=== PATIENT | female | born 1965 | race Caucasian/White ===

== ENCOUNTER 2017-03-31 20:42 | Emergency (ER) | payer MEDICAID, OTHER ==
[2017-03-31] MEDS ORDERED: Lidocaine 1% 20 ML MDV INJECT ONE (21:10)
--- NOTE | 2017-03-31 21:10 | EDM.PDOC ---
ED HPI GENERAL MEDICAL PROBLEM - General Chief Complaint: Skin Complaint Stated Complaint: FISH HOOK/RT MIDDLE FINGER Time Seen by Provider: 03/31/17 21:05 Source of Information: Reports: Patient History Limitations: Reports: No Limitations - History of Present Illness INITIAL COMMENTS - FREE TEXT/NARRATIVE: HISTORY AND PHYSICAL: History of present illness: [Patient comes to the emergency room with a fishhook stuck in her right middle finger. Occurred about 30 minutes ago when she was fishing. complains of pain to the tip of her middle finger. Cannot remember the date of her last tetanus shot. Otherwise has no other complaints or concerns. Review of systems: As per history of present illness and below otherwise all systems reviewed and negative. Past medical history: As per history of present illness and as reviewed below otherwise noncontributory. Surgical history: As per history of present illness and as reviewed below otherwise noncontributory. Social history: No reported history of drug or alcohol abuse. Family history: As per history of present illness and as reviewed below otherwise noncontributory. Physical exam: HEENT: Atraumatic, normocephalic. Extremities: Barbed fishhook in tip of right middle finger. Neurovascular unremarkable. Neuro: Awake, alert, oriented. Motor and sensory unremarkable throughout. Exam nonfocal. Impression: [Spearfish removal right middle finger] Plan: [Area was anesthetized with 1% lidocaine without epinephrine. The fishhook was removed from the embedded mohini using a coach wirer. The fishhook was then pulled through her finger without difficulty. It was intact. Bacitracin and dressing was applied by RN. Adacel was updated in the ER. Follow-up in the ER as needed as discussed. Patient is in agreement with today's plan.] Definitive disposition and diagnosis as appropriate pending reevaluation and review of above. left 3rd digit Pain Score (Numeric/FACES): 3 - Related Data Allergies Allergy/AdvReac Type Severity Reaction Status Date / Time No Known Allergies Allergy Verified 03/31/17 20:48 Home Meds: Home Meds metFORMIN [Glucophage XR] 500 mg PO DAILY 03/31/17 [History] Past Medical History HEENT History: Reports: None Psychiatric History: Reports: None Endocrine/Metabolic History: Reports: Diabetes, Type II Social & Family History - Family History Family Medical History: Noncontributory - Tobacco Use Smoking Status *Q: Never Smoker - Recreational Drug Use Recreational Drug Use: No ED ROS GENERAL - Review of Systems Review Of Systems: ROS reveals no pertinent complaints other than HPI. ED EXAM, SKIN/RASH Exam: See Below Course - Vital Signs Last Recorded V/S: Last Vital Signs Temp 97.0 F 03/31/17 20:49 Pulse 70 03/31/17 20:49 Resp 18 03/31/17 20:49 BP 167/87 H 03/31/17 20:49 Pulse Ox 95 03/31/17 20:49 - Orders/Labs/Meds Orders: Active Orders 24 hr Category Date Time Status Vaccines to be Administered [RC] PER UNIT ROUTINE Care 03/31/17 21:32 Ordered Bacitracin [Bacitracin Oint 1 GM] Med 03/31/17 21:31 Once 1 dose TOP ONETIME ONE Diphth,Pertuss(Acell),Tet Vac [Adacel] Med 03/31/17 21:32 Once 0.5 ml IM .ONCE ONE Meds: Medications Discontinued Medications Generic Name Dose Route Start Last Admin Trade Name Mansi PRN Reason Stop Dose Admin Lidocaine HCl 20 ml 03/31/17 21:10 Xylocaine 1% INJECT 03/31/17 21:11 ONETIME ONE Departure - Departure Time of Disposition: 21:34 Disposition: Home, Self-Care 01 Condition: Good Clinical Impression: Fish hook injury of finger of right hand - Discharge Information Referrals: PCP,None [Primary Care Provider] - Forms: ED Department Discharge Additional Instructions: The following information is given to patients seen in the emergency department who are being discharged to home. This information is to outline your options for follow-up care. We provide all patients seen in our emergency department with a follow-up referral. The need for follow-up, as well as the timing and circumstances, are variable depending upon the specifics of your emergency department visit. If you don't have a primary care physician on staff, we will provide you with a referral. We always advise you to contact your personal physician following an emergency department visit to inform them of the circumstance of the visit and for follow-up with them and/or the need for any referrals to a consulting specialist. The emergency department will also refer you to a specialist when appropriate. This referral assures that you have the opportunity for follow-up care with a specialist. All of these measure are taken in an effort to provide you with optimal care, which includes your follow-up. Under all circumstances we always encourage you to contact your private physician who remains a resource for coordinating your care. When calling for follow-up care, please make the office aware that this follow-up is from your recent emergency room visit. If for any reason you are refused follow-up, please contact the [facility] emergency department at and asked to speak to the emergency department charge nurse. [facility] [address] [place] [id number] Follow-up with your primary care provider in the next 48-72 hours. Keep clean and dry. Apply Neosporin and Band-Aid as instructed. Return to ER as needed as discussed. - My Orders Last 24 Hours: My Active Orders 03/31/17 21:31 Bacitracin [Bacitracin Oint 1 GM] 1 dose TOP ONETIME ONE 03/31/17 21:32 Vaccines to be Administered [RC] PER UNIT ROUTINE Diphth,Pertuss(Acell),Tet Vac [Adacel] 0.5 ml IM .ONCE ONE - Assessment/Plan Last 24 Hours: My Active Orders 03/31/17 21:31 Bacitracin [Bacitracin Oint 1 GM] 1 dose TOP ONETIME ONE 03/31/17 21:32 Vaccines to be Administered [RC] PER UNIT ROUTINE Diphth,Pertuss(Acell),Tet Vac [Adacel] 0.5 ml IM .ONCE ONE
[2017-03-31] MEDS ORDERED: Bacitracin Oint 1 GM U/D Packet TOP ONE (21:31)
[2017-03-31] MEDS ORDERED: Diphtheria,Pertussis(Acell),Tetanus Vaccine 0.5 ML Syringe IM ONE (21:32)
[2017-04-01 06:04] VITALS: BP 151/85
== END 2017-03-31 21:50 | disposition home or self-care (01) ==
LOC: MW.ED 20:42
DX: S60.452A Superficial foreign body of right middle finger, initial encounter (principal); Z23 Encounter for immunization; E11.9 Type 2 diabetes mellitus without complications; W45.8XXA Other foreign body or object entering through skin, initial encounter
CPT/HCPCS: 90471; 90715; 99283-25; 99284

== ENCOUNTER 2017-05-25 17:44 | Emergency (ER) | payer MEDICAID, OTHER ==
[2017-05-25] MEDS ORDERED: Sodium Chloride 0.9% 1,000 ML IV ONE (18:12)
[2017-05-25] MEDS ORDERED: Ketorolac 30 MG/ML SDV IVPUSH ONE (18:12)
[2017-05-25] MEDS ORDERED: Ondansetron 4 MG/2 ML SDV IVPUSH ONE (18:12)
[2017-05-25] MEDS ORDERED: LORazepam 2 MG/ML MDV IVPUSH ONE (18:13)
[2017-05-25 19:18] LABS: CHLORIDE,CL 108 mmol/L (98-110); SODIUM,NA 142 mmol/L (136-146)
--- NOTE | 2017-05-25 19:59 | EDM.PDOC ---
ED HPI GENERAL MEDICAL PROBLEM - General Chief Complaint: Headache Stated Complaint: PT HEAD IS HURTING Time Seen by Provider: 05/25/17 17:56 Source of Information: Reports: Patient History Limitations: Reports: No Limitations - History of Present Illness INITIAL COMMENTS - FREE TEXT/NARRATIVE: History of present illness: [52-year-old female comes in complaining of debilitating headache indicated the worst headache of her life. Patient also shares that she has had a family member with recent diagnosis of a brain tumor as well as a family member cervical aneurysm and she is very frightened.] Review of systems: As per history of present illness and below otherwise all systems reviewed and negative. Past medical history: As per history of present illness and as reviewed below otherwise noncontributory. Surgical history: As per history of present illness and as reviewed below otherwise noncontributory. Social history: No reported history of drug or alcohol abuse. Family history: As per history of present illness and as reviewed below otherwise noncontributory. Physical exam: HEENT: Atraumatic, normocephalic, pupils reactive, negative for conjunctival pallor or scleral icterus, mucous membranes moist, throat clear, neck supple, nontender, trachea midline. Lungs: Clear to auscultation, breath sounds equal bilaterally, chest nontender. Heart: S1S2, regular, negative for clicks, rubs, or JVD. Abdomen: Soft, nondistended, nontender. Negative for masses or hepatosplenomegaly. Negative for costovertebral tenderness. Pelvis: Stable nontender. Genitourinary: Deferred. Rectal: Deferred. Extremities: Atraumatic, negative for cords or calf pain. Neurovascular unremarkable. Neuro: Awake, alert, oriented. Cranial nerves II through XII unremarkable. Cerebellum unremarkable. Motor and sensory unremarkable throughout. Exam nonfocal. Global assessment is benign save the subjective complaint of the headache as noted in the history of present illness. Diagnostics: [CT of head without contrast, CBC, CMP] Therapeutics: [IV fluid, Ativan,] Impression: [#1 headache #2 anxiety ] Plan: [f/u with PCP] Definitive disposition and diagnosis as appropriate pending reevaluation and review of above. head Pain Score (Numeric/FACES): 8 - Related Data Allergies Allergy/AdvReac Type Severity Reaction Status Date / Time No Known Allergies Allergy Verified 05/25/17 17:51 Home Meds: Home Meds metFORMIN [Glucophage XR] 500 mg PO DAILY 03/31/17 [History] Past Medical History - Past Health History Medical/Surgical History: Denies Medical/Surgical History HEENT History: Reports: None Cardiovascular History: Reports: Stents Psychiatric History: Reports: None Endocrine/Metabolic History: Reports: Diabetes, Type II Social & Family History - Family History Family Medical History: Noncontributory - Tobacco Use Smoking Status *Q: Never Smoker - Recreational Drug Use Recreational Drug Use: No ED ROS GENERAL - Review of Systems Review Of Systems: See Below (The history of present illness) ED EXAM, GENERAL - Physical Exam Exam: See Below (History of present illness) Course - Vital Signs Last Recorded V/S: Last Vital Signs Temp 36.4 C 05/25/17 17:44 Pulse 90 05/25/17 17:44 Resp 18 05/25/17 17:44 BP 146/78 H 05/25/17 17:44 Pulse Ox 97 05/25/17 17:44 - Orders/Labs/Meds Orders: Active Orders 24 hr Category Date Time Status Head wo Cont [CT] Stat Exams 05/25/17 18:13 Taken Labs: Laboratory Tests 05/25/17 05/25/17 Range/Units 18:42 18:42 WBC 8.88 (4.0-11.0) K/uL RBC 3.55 L (4.30-5.90) M/uL Hgb 10.2 L (12.0-16.0) g/dL Hct 31.5 L (36.0-46.0) % MCV 88.7 (80.0-98.0) fL MCH 28.7 (27.0-32.0) pg MCHC 32.4 (31.0-37.0) g/dL RDW Std Deviation 44.2 (28.0-62.0) fl RDW Coeff of Danny 14 (11.0-15.0) % Plt Count 316 (150-400) K/uL MPV 11.20 (7.40-12.00) fL Neut % (Auto) 66.5 (48.0-80.0) % Lymph % (Auto) 25.2 (16.0-40.0) % [place] % (Auto) 6.5 (0.0-15.0) % Eos % (Auto) 1.5 (0.0-7.0) % Baso % (Auto) 0.3 (0.0-1.5) % Neut # (Auto) 5.9 H (1.4-5.7) K/uL Lymph # (Auto) 2.2 (0.6-2.4) K/uL [place] # (Auto) 0.6 (0.0-0.8) K/uL Eos # (Auto) 0.1 (0.0-0.7) K/uL Baso # (Auto) 0.0 (0.0-0.1) K/uL Nucleated RBC % 0.0 /100WBC Nucleated RBCs # 0 K/uL Sodium 142 (136-146) mmol/L Potassium 3.9 (3.5-5.1) mmol/L Chloride 108 (98-110) mmol/L Carbon Dioxide 25 (21-31) mmol/L BUN 11 (6.0-23.0) mg/dL Creatinine 0.6 (0.6-1.5) mg/dL Est Cr Clr Drug Dosing TNP Estimated GFR (MDRD) > 60.0 ml/min Glucose 113 H (60-110) mg/dL Calcium 8.8 (8.8-10.8) mg/dL Total Bilirubin 0.3 (0.1-1.5) mg/dL AST 22 (5-40) IU/L ALT 23 (8-54) IU/L Alkaline Phosphatase 80 (40-150) Total Protein 6.7 (6.0-8.0) g/dL Albumin 3.6 (3.5-5.0) g/dL Globulin 3.1 (2.0-3.5) g/dL Albumin/Globulin Ratio 1.2 L (1.3-2.8) Meds: Medications Discontinued Medications Generic Name Dose Route Start Last Admin Trade Name Freq PRN Reason Stop Dose Admin Sodium Chloride 1,000 mls @ 999 mls/hr 05/25/17 18:12 05/25/17 19:18 Normal Saline IV 05/25/17 19:12 999 mls/hr STAT ONE Administration Ketorolac Tromethamine 30 mg 05/25/17 18:12 05/25/17 18:50 Toradol IVPUSH 05/25/17 18:13 30 mg ONETIME ONE Administration Lorazepam 1 mg 05/25/17 18:13 05/25/17 19:12 Ativan IVPUSH 05/25/17 18:14 1 mg ONETIME ONE Administration Ondansetron HCl 4 mg 05/25/17 18:12 05/25/17 19:10 Zofran IVPUSH 05/25/17 18:13 4 mg ONETIME ONE Administration Departure - Departure Time of Disposition: 19:58 Disposition: Home, Self-Care 01 Condition: Good Clinical Impression: Tension-type headache, Anxiety - Discharge Information Referrals: PCP,None [Primary Care Provider] - Additional Instructions: The following information is given to patients seen in the emergency department who are being discharged to home. This information is to outline your options for follow-up care. We provide all patients seen in our emergency department with a follow-up referral. The need for follow-up, as well as the timing and circumstances, are variable depending upon the specifics of your emergency department visit. If you don't have a primary care physician on staff, we will provide you with a referral. We always advise you to contact your personal physician following an emergency department visit to inform them of the circumstance of the visit and for follow-up with them and/or the need for any referrals to a consulting specialist. The emergency department will also refer you to a specialist when appropriate. This referral assures that you have the opportunity for follow-up care with a specialist. All of these measure are taken in an effort to provide you with optimal care, which includes your follow-up. Under all circumstances we always encourage you to contact your private physician who remains a resource for coordinating your care. When calling for follow-up care, please make the office aware that this follow-up is from your recent emergency room visit. If for any reason you are refused follow-up, please contact the [facility] Emergency Department at and asked to speak to the emergency department charge nurse. You may take [id number] pain medicine for your headache You may alternate ice and heat on your neck and on your temples to help with your headache Follow-up the primary care provider as needed Return to ED as needed as discussed - My Orders Last 24 Hours: My Active Orders 05/25/17 18:13 Head wo Cont [CT] Stat - Assessment/Plan Last 24 Hours: My Active Orders 05/25/17 18:13 Head wo Cont [CT] Stat
[2017-05-25 20:24] VITALS: BP 141/78
--- NOTE | 2017-05-26 19:56 | CT ---
EXAM DATE: 05/25/17 PATIENT'S AGE: 52 Patient: CATARINA KNOTT Facility: [place], [place] Site . Site : 1965 Study: CT Head WO CONT [id number]/21/2017 7:09:55 PM Ordering Physician: Doctor Westbrook Final Report: INDICATION: PAIN TO OCCIPITAL AREA FOR 5 DAYS WITH NO KNOWN INJURY TECHNIQUE: CT Head without contrast. COMPARISON: None. FINDINGS: CSF spaces: Within normal limits for age. Brain parenchyma: The gayle-white differentiation is normal. No sign of mass, hemorrhage, or midline shift. Skull base and calvarium: The visualized paranasal sinuses and mastoid air cells are clear. The visualized orbits are grossly unremarkable. No skull fractures. IMPRESSION: Unremarkable noncontrast head CT. Dictated by: Pietro Haley MD @ 05/25/2017 19:50:49 (Electronic Signature) Report Signed by Proxy. [facility]
== END 2017-05-25 20:21 | disposition home or self-care (01) ==
LOC: MW.ED 17:44
DX: G44.209 Tension-type headache, unspecified, not intractable (principal); F41.9 Anxiety disorder, unspecified; E11.9 Type 2 diabetes mellitus without complications; Z79.84 Long term (current) use of oral hypoglycemic drugs
CPT/HCPCS: 36415; 70450; 80053; 85025; 96361; 96374; 96375; 99284; J1885; J2060; J2405; J7040; 99282

== ENCOUNTER 2017-07-22 23:29 | Observation (INO) | payer MEDICAID, OTHER ==
[2017-07-22] MEDS ORDERED: Sodium Chloride 0.9% 10 ML Syringe FLUSH PRN (23:38)
[2017-07-22] MEDS ORDERED: Sodium Chloride 0.9% 2.5 ML Syringe FLUSH PRN ×2 (23:38)
--- NOTE | 2017-07-22 23:40 | EDM.PDOC ---
ED HPI GENERAL MEDICAL PROBLEM - General Chief Complaint: Chest Pain Stated Complaint: CEHST PAIN Time Seen by Provider: 07/22/17 23:38 - History of Present Illness INITIAL COMMENTS - FREE TEXT/NARRATIVE: HISTORY AND PHYSICAL: History of present illness: Patient 52-year-old female with history of coronary artery disease who had a stent in 2016 was also had bariatric surgery and a history of non-insulin dependent diabetes presents with concern of chest pain this started several hours prior to arrival is poorly described mid chest she equivocates regarding radiation to her left shoulder she had no associated shortness of breath diaphoresis nausea vomiting or other complaints. She does have a history of anxiety Review of systems: As per history of present illness and below otherwise all systems reviewed and negative. Past medical history: As per history of present illness and as reviewed below otherwise noncontributory. Surgical history: As per history of present illness and as reviewed below otherwise noncontributory. Social history: No reported history of drug or alcohol abuse. Family history: As per history of present illness and as reviewed below otherwise noncontributory. Physical exam: HEENT: Atraumatic, normocephalic, pupils reactive, negative for conjunctival pallor or scleral icterus, mucous membranes moist, throat clear, neck supple, nontender, trachea midline. Lungs: Clear to auscultation, breath sounds equal bilaterally, chest nontender. Heart: S1S2, regular, negative for clicks, rubs, or JVD. Abdomen: Soft, nondistended, nontender. Negative for masses or hepatosplenomegaly. Negative for costovertebral tenderness. Pelvis: Stable nontender. Genitourinary: Deferred. Rectal: Deferred. Extremities: Atraumatic, negative for cords or calf pain. Neurovascular unremarkable. Neuro: Awake, alert, oriented. Cranial nerves II through XII unremarkable. Cerebellum unremarkable. Motor and sensory unremarkable throughout. Exam nonfocal. Diagnostics: CBC CMP PT/INR troponin chest x-ray EKG Therapeutics: IV O2 monitor aspirin 324 mg by mouth sublingual nitroglycerin every 53 Impression: #1 chest pain #2 history diabetes Definitive disposition and diagnosis as appropriate pending reevaluation and review of above. Left Upper Chest Pain Score (Numeric/FACES): 7 - Related Data Allergies Allergy/AdvReac Type Severity Reaction Status Date / Time No Known Allergies Allergy Verified 07/22/17 23:42 Home Meds: Home Meds metFORMIN [Glucophage XR] 1,000 mg PO BID 03/31/17 [History] Furosemide [Lasix] 0 mg PO DAILY 07/22/17 [History] Hydrochlorothiazide 0 mg PO BEDTIME 07/22/17 [History] glipiZIDE [Glucotrol XL] 2.5 mg PO BID 07/22/17 [History] Past Medical History - Past Health History Medical/Surgical History: Denies Medical/Surgical History HEENT History: Reports: None Cardiovascular History: Reports: Stents Psychiatric History: Reports: None Endocrine/Metabolic History: Reports: Diabetes, Type II Social & Family History - Family History Family Medical History: Noncontributory - Tobacco Use Smoking Status *Q: Never Smoker - Recreational Drug Use Recreational Drug Use: No ED ROS GENERAL - Review of Systems Review Of Systems: ROS reveals no pertinent complaints other than HPI. ED EXAM, GENERAL - Physical Exam Exam: See Below (See dictated) Course - Vital Signs Last Recorded V/S: Last Vital Signs Temp 36.6 C 07/22/17 23:44 Pulse 78 07/23/17 00:09 Resp 16 07/22/17 23:44 BP 122/69 07/23/17 00:09 Pulse Ox 96 07/22/17 23:44 - Orders/Labs/Meds Orders: Active Orders 24 hr Category Date Time Status EKG Documentation Completion [RC] STAT Care 07/22/17 23:38 Active Chest 1V Frontal [CR] Stat Exams 07/22/17 23:38 Taken Nitroglycerin [Nitrostat] Med 07/22/17 23:41 Active 0.4 mg SL Q5M PRN Sodium Chloride 0.9% [Saline Flush] Med 07/22/17 23:38 Active 10 ml FLUSH ASDIRECTED PRN Sodium Chloride 0.9% [Saline Flush] Med 07/22/17 23:38 Active 2.5 ml FLUSH ASDIRECTED PRN Saline Lock Insert [OM.PC] Stat Oth 07/22/17 23:38 Ordered Medication Orders Nitroglycerin (Nitrostat) 0.4 mg SL Q5M PRN PRN Reason: Chest Pain Last Admin: 07/23/17 00:04 Dose: 0.4 mg Sodium Chloride (Saline Flush) 10 ml FLUSH ASDIRECTED PRN PRN Reason: Keep Vein Open Last Admin: 07/23/17 00:05 Dose: 10 ml Sodium Chloride (Saline Flush) 2.5 ml FLUSH ASDIRECTED PRN PRN Reason: Keep Vein Open Last Admin: 07/23/17 00:04 Dose: 2.5 ml Labs: Laboratory Tests 07/22/17 07/22/17 07/22/17 Range/Units 23:47 23:47 23:47 WBC 7.68 (4.0-11.0) K/uL RBC 3.81 L (4.30-5.90) M/uL Hgb 9.6 L (12.0-16.0) g/dL Hct 31.6 L (36.0-46.0) % MCV 82.9 (80.0-98.0) fL MCH 25.2 L (27.0-32.0) pg MCHC 30.4 L (31.0-37.0) g/dL RDW Std Deviation 53.2 (28.0-62.0) fl RDW Coeff of Danny 18 H (11.0-15.0) % Plt Count 278 (150-400) K/uL MPV 11.20 (7.40-12.00) fL Neut % (Auto) 64.9 (48.0-80.0) % Lymph % (Auto) 24.7 (16.0-40.0) % [place] % (Auto) 7.0 (0.0-15.0) % Eos % (Auto) 2.9 (0.0-7.0) % Baso % (Auto) 0.5 (0.0-1.5) % Neut # (Auto) 5.0 (1.4-5.7) K/uL Lymph # (Auto) 1.9 (0.6-2.4) K/uL [place] # (Auto) 0.5 (0.0-0.8) K/uL Eos # (Auto) 0.2 (0.0-0.7) K/uL Baso # (Auto) 0.0 (0.0-0.1) K/uL Nucleated RBC % 0.0 /100WBC Nucleated RBCs # 0 K/uL INR 0.94 (0.86-1.11) D-Dimer, Quantitative 0.33 (0.0-0.52) mg/LFEU Sodium 140 (136-146) mmol/L Potassium 3.6 (3.5-5.1) mmol/L Chloride 105 (98-110) mmol/L Carbon Dioxide 25 (21-31) mmol/L BUN 13 (6.0-23.0) mg/dL Creatinine 0.7 (0.6-1.5) mg/dL Est Cr Clr Drug Dosing 89.01 mL/min Estimated GFR (MDRD) > 60.0 ml/min Glucose 201 H (60-110) mg/dL Calcium 8.7 L (8.8-10.8) mg/dL Total Bilirubin 0.5 (0.1-1.5) mg/dL AST 21 (5-40) IU/L ALT 22 (8-54) IU/L Alkaline Phosphatase 110 (40-150) CK-MB (CK-2) 0.5 (0-6.6) ng/ml Troponin I < 0.10 (0.0-0.29) NG/ML Total Protein 6.8 (6.0-8.0) g/dL Albumin 3.5 (3.5-5.0) g/dL Globulin 3.3 (2.0-3.5) g/dL Albumin/Globulin Ratio 1.1 L (1.3-2.8) Meds: Medications Generic Name Dose Route Start Last Admin Trade Name Freq PRN Reason Stop Dose Admin Nitroglycerin 0.4 mg 07/22/17 23:41 07/23/17 00:04 Nitrostat SL 0.4 mg Q5M PRN Administration Chest Pain Sodium Chloride 10 ml 07/22/17 23:38 07/23/17 00:05 Saline Flush FLUSH 10 ml ASDIRECTED PRN Administration Keep Vein Open Sodium Chloride 2.5 ml 07/22/17 23:38 07/23/17 00:04 Saline Flush FLUSH 2.5 ml ASDIRECTED PRN Administration Keep Vein Open Discontinued Medications Generic Name Dose Route Start Last Admin Trade Name Freq PRN Reason Stop Dose Admin Aspirin 324 mg 07/22/17 23:41 07/23/17 00:00 Aspirin PO 07/22/17 23:42 324 mg ONETIME ONE Administration Sodium Chloride 2.5 ml 07/22/17 23:38 Saline Flush FLUSH ASDIRECTED PRN Keep Vein Open Departure - Departure Time of Disposition: 23:39 Disposition: Refer to Observation Condition: Good Clinical Impression: Chest pain, Non-insulin dependent type 2 diabetes mellitus - Discharge Information Referrals: PCP,None [Primary Care Provider] - Forms: ED Department Discharge - My Orders Last 24 Hours: My Active Orders 07/22/17 23:38 EKG Documentation Completion [RC] STAT Chest 1V Frontal [CR] Stat Sodium Chloride 0.9% [Saline Flush] 10 ml FLUSH ASDIRECTED PRN Sodium Chloride 0.9% [Saline Flush] 2.5 ml FLUSH ASDIRECTED PRN Saline Lock Insert [OM.PC] Stat 07/22/17 23:41 Nitroglycerin [Nitrostat] 0.4 mg SL Q5M PRN - Assessment/Plan Last 24 Hours: My Active Orders 07/22/17 23:38 EKG Documentation Completion [RC] STAT Chest 1V Frontal [CR] Stat Sodium Chloride 0.9% [Saline Flush] 10 ml FLUSH ASDIRECTED PRN Sodium Chloride 0.9% [Saline Flush] 2.5 ml FLUSH ASDIRECTED PRN Saline Lock Insert [OM.PC] Stat 07/22/17 23:41 Nitroglycerin [Nitrostat] 0.4 mg SL Q5M PRN
[2017-07-22] MEDS ORDERED: Nitroglycerin 0.4 MG Tab.SL SL PRN (23:41)
[2017-07-22] MEDS ORDERED: Aspirin 81 MG Tab.Chew PO ONE (23:41)
[2017-07-23 00:24] LABS: CHLORIDE,CL 105 mmol/L (98-110); SODIUM,NA 140 mmol/L (136-146)
[2017-07-23] MEDS ORDERED: Insulin Aspart 100 Units/ML 3 ML Pen SUBCUT SCH (07:30)
[2017-07-23 13:16] VITALS: BP 128/73
--- NOTE | 2017-07-23 15:49 | CR ---
EXAM DATE: 07/23/17 PATIENT'S AGE: 52 Patient: CATARINA KNOTT Facility: [place], [place] Site . Site : 1965 Study: XRay Chest [id number]/19/2017 12:14:00 AM Ordering Physician: Aspen Quiroz Final Report: INDICATION: CHEST PAIN TECHNIQUE: Chest 1 view COMPARISON: None FINDINGS: Cardiovascular and mediastinum: Heart size and vasculature are normal in caliber and appearance. Mediastinum is within normal limits. Lungs and pleural space: No focal consolidation. No sign of pleural effusion. No pneumothorax. Bones and soft tissues: Degenerative changes. IMPRESSION: No acute cardiopulmonary disease. Dictated by Wicho Hannah MD @ 07/23/2017 12:25:48 AM Dictated by: Wicho Hannah MD @ 07/23/2017 00:25:57 (Electronic Signature) Report Signed by Proxy. [facility]
== END 2017-07-23 13:15 ==
LOC: MW.ED 23:29 → MW.MS 07-23 00:31
PROVIDERS: ADMIT Internal Medicine; ATTEND Internal Medicine
DX: R07.89 Other chest pain (principal); I25.10 Atherosclerotic heart disease of native coronary artery without angina pectoris; I10 Essential (primary) hypertension; E11.9 Type 2 diabetes mellitus without complications; Z98.84 Bariatric surgery status; Z79.84 Long term (current) use of oral hypoglycemic drugs; Z79.899 Other long term (current) drug therapy; Z95.5 Presence of coronary angioplasty implant and graft
CPT/HCPCS: 36415; 71010; 80053; 82553; 82962; 84484; 85025; 85379; 85610; 99285; A9270; J1815; 99283; G0378

== ENCOUNTER 2019-05-28 09:12 | Emergency (ER) | payer BC, OTHER ==
[2019-05-28] MEDS ORDERED: Sodium Chloride 0.9% 10 ML Syringe FLUSH PRN (09:22)
[2019-05-28] MEDS ORDERED: Sodium Chloride 0.9% 2.5 ML Syringe FLUSH PRN (09:22)
[2019-05-28] MEDS ORDERED: Aspirin 81 MG Tab.Chew PO ONE (09:22)
[2019-05-28] MEDS ORDERED: Nitroglycerin 2% Oint 1 GM UD Packet TOP ONE (09:22)
--- NOTE | 2019-05-28 09:25 | EDM.PDOC ---
ED HPI GENERAL MEDICAL PROBLEM - General Chief Complaint: Chest Pain Stated Complaint: SOB Time Seen by Provider: 05/28/19 09:19 - History of Present Illness INITIAL COMMENTS - FREE TEXT/NARRATIVE: HISTORY AND PHYSICAL: History of present illness: Patient's 54-year-old white female history of diabetes who has had coronary artery stent placed in 2013 after positive stress test who presents with a concern of chest pain has been midsternal off-and-on since this morning she noticed it while at work there was some associated shortness of breath no nausea vomiting or diaphoresis. On arrival here patient states the pain has resolved Review of systems: As per history of present illness and below otherwise all systems reviewed and negative. Past medical history: As per history of present illness and as reviewed below otherwise noncontributory. Surgical history: As per history of present illness and as reviewed below otherwise noncontributory. Social history: No reported history of drug or alcohol abuse. Family history: As per history of present illness and as reviewed below otherwise noncontributory. Physical exam: HEENT: Atraumatic, normocephalic, pupils reactive, negative for conjunctival pallor or scleral icterus, mucous membranes moist, throat clear, neck supple, nontender, trachea midline. Lungs: Clear to auscultation, breath sounds equal bilaterally, chest nontender. Heart: S1S2, regular, negative for clicks, rubs, or JVD. Abdomen: Soft, nondistended, nontender. Negative for masses or hepatosplenomegaly. Negative for costovertebral tenderness. Pelvis: Stable nontender. Genitourinary: Deferred. Rectal: Deferred. Extremities: Atraumatic, negative for cords or calf pain. Neurovascular unremarkable. Neuro: Awake, alert, oriented. Cranial nerves II through XII unremarkable. Cerebellum unremarkable. Motor and sensory unremarkable throughout. Exam nonfocal. Diagnostics: CBC CMP and BNP troponin PT/INR chest x-ray EKG Therapeutics: IV O2 monitor aspirin 324 mg by mouth Nitropaste 1 inch to chest wall Impression: #1 chest pain #2 history diabetes #3 history coronary artery stent Definitive disposition and diagnosis as appropriate pending reevaluation and review of above. chest Pain Score (Numeric/FACES): 8 - Related Data Allergies Allergy/AdvReac Type Severity Reaction Status Date / Time No Known Allergies Allergy Verified 05/28/19 09:18 Home Meds: Home Meds metFORMIN [Glucophage XR] 1,000 mg PO BID 03/31/17 [History] Furosemide [Lasix] 1 tab PO DAILY 07/22/17 [History] Diclofenac Sodium [Diclofono] 1 dose TOP ASDIRECTED 05/28/19 [History] Fluticasone Propionate [Flovent] 50 mcg NASBOTH BID 05/28/19 [History] Insulin Detemir [Levemir Flextouch] 40 unit INJECT DAILY 05/28/19 [History] Isosorbide Mononitrate [Ismo] 30 mg PO DAILY 05/28/19 [History] Losartan [Cozaar] 50 mg PO DAILY 05/28/19 [History] Metoprolol Succinate [Kapspargo Sprinkle] 25 mg PO DAILY 05/28/19 [History] Pantoprazole Sodium [Protonix] 40 mg PO DAILY 05/28/19 [History] metOLazone [Metolazone] 2.5 mg PO DAILY 05/28/19 [History] traMADol HCl [Tramadol HCl] 50 mg PO Q6HR 05/28/19 [History] Past Medical History - Past Health History Medical/Surgical History: Denies Medical/Surgical History HEENT History: Reports: None Cardiovascular History: Reports: Stents Respiratory History: Reports: None Gastrointestinal History: Reports: None Genitourinary History: Reports: None 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: Reports: 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 Musculoskeletal History: Reports: None Neurological History: Reports: None Psychiatric History: Reports: None Endocrine/Metabolic History: Reports: Diabetes, Type II Hematologic History: Reports: None Immunologic History: Reports: None Oncologic (Cancer) History: Reports: None Dermatologic History: Reports: None - Infectious Disease History Infectious Disease History: Reports: Chicken Pox - Past Surgical History Head Surgeries/Procedures: Reports: None HEENT Surgical History: Reports: None Cardiovascular Surgical History: Reports: Coronary Artery Stent Respiratory Surgical History: Reports: None GI Surgical History: Reports: Cholecystectomy Female Surgical History: Reports: Oophorectomy Endocrine Surgical History: Reports: None Neurological Surgical History: Reports: None Musculoskeletal Surgical History: Reports: None Oncologic Surgical History: Reports: None Dermatological Surgical History: Reports: None Social & Family History - Family History Family Medical History: Noncontributory - Tobacco Use Smoking Status *Q: Former Smoker Used Tobacco, but Quit: Yes Month/Year Tobacco Last Used: 30 years - Caffeine Use Caffeine Use: Reports: Coffee Caffeine Use Comment: 4 cups daily - Recreational Drug Use Recreational Drug Use: No ED ROS GENERAL - Review of Systems Review Of Systems: ROS reveals no pertinent complaints other than HPI. ED EXAM, GENERAL - Physical Exam Exam: See Below (Dictation) Course - Vital Signs Last Recorded V/S: Last Vital Signs Temp 36.4 C 05/28/19 09:16 Pulse 71 05/28/19 09:42 Resp 18 05/28/19 09:41 BP 133/79 05/28/19 10:14 Pulse Ox 93 L 05/28/19 09:41 - Orders/Labs/Meds Orders: Active Orders 24 hr Category Date Time Status Cardiac Monitoring [RC] . DIRECTED Care 05/28/19 09:21 Active EKG Documentation Completion [RC] STAT Care 05/28/19 09:21 Active Oxygen Therapy, ED [RC] ASDIRECTED Care 05/28/19 09:21 Active Pulse Oximetry [RC] ASDIRECTED Care 05/28/19 09:21 Active Sodium Chloride 0.9% [Normal Saline] 1,000 ml Med 05/28/19 09:30 Active IV STAT Sodium Chloride 0.9% [Saline Flush] Med 05/28/19 09:22 Active 10 ml FLUSH ASDIRECTED PRN Sodium Chloride 0.9% [Saline Flush] Med 05/28/19 09:22 Active 2.5 ml FLUSH ASDIRECTED PRN Saline Lock Insert [OM.PC] Stat Oth 05/28/19 09:21 Ordered Medication Orders Sodium Chloride (Normal Saline) 1,000 mls @ 125 mls/hr IV STAT BLADE Last Admin: 05/28/19 09:37 Dose: 125 mls/hr Sodium Chloride (Saline Flush) 10 ml FLUSH ASDIRECTED PRN PRN Reason: Keep Vein Open Sodium Chloride (Saline Flush) 2.5 ml FLUSH ASDIRECTED PRN PRN Reason: Keep Vein Open Labs: Laboratory Tests 05/28/19 05/28/19 05/28/19 Range/Units 09:22 09:22 09:22 WBC 8.67 (4.0-11.0) K/uL RBC 4.14 L (4.30-5.90) M/uL Hgb 11.5 L (12.0-16.0) g/dL Hct 35.6 L (36.0-46.0) % MCV 86.0 (80.0-98.0) fL MCH 27.8 (27.0-32.0) pg MCHC 32.3 (31.0-37.0) g/dL RDW Std Deviation 47.6 (28.0-62.0) fl RDW Coeff of Danny 15 (11.0-15.0) % Plt Count 288 (150-400) K/uL MPV 12.20 H (7.40-12.00) fL Neut % (Auto) 66.2 (48.0-80.0) % Lymph % (Auto) 25.4 (16.0-40.0) % [place] % (Auto) 5.8 (0.0-15.0) % Eos % (Auto) 2.3 (0.0-7.0) % Baso % (Auto) 0.3 (0.0-1.5) % Neut # (Auto) 5.7 (1.4-5.7) K/uL Lymph # (Auto) 2.2 (0.6-2.4) K/uL [place] # (Auto) 0.5 (0.0-0.8) K/uL Eos # (Auto) 0.2 (0.0-0.7) K/uL Baso # (Auto) 0.0 (0.0-0.1) K/uL Nucleated RBC % 0.0 /100WBC Nucleated RBCs # 0 K/uL INR 0.92 Sodium 137 (136-145) mmol/L Potassium 3.3 L (3.5-5.1) mmol/L Chloride 99 (98-107) mmol/L Carbon Dioxide 29.7 (21.0-32.0) mmol/L BUN 16 (7.0-18.0) mg/dL Creatinine 0.6 (0.6-1.0) mg/dL Est Cr Clr Drug Dosing 101.51 mL/min Estimated GFR (MDRD) > 60.0 ml/min Glucose 311 H (74-106) mg/dL Calcium 8.6 (8.5-10.1) mg/dL Total Bilirubin 0.5 (0.2-1.0) mg/dL AST 24 (15-37) IU/L ALT 32 (14-63) IU/L Alkaline Phosphatase 110 (46-116) U/L Troponin I < 0.050 (0.000-0.056) ng/mL B-Natriuretic Peptide (<100) PG/ML Total Protein 7.1 (6.4-8.2) g/dL Albumin 3.7 (3.4-5.0) g/dL Globulin 3.4 (2.6-4.0) g/dL Albumin/Globulin Ratio 1.1 (0.9-1.6) 05/28/19 Range/Units 09:22 WBC (4.0-11.0) K/uL RBC (4.30-5.90) M/uL Hgb (12.0-16.0) g/dL Hct (36.0-46.0) % MCV (80.0-98.0) fL MCH (27.0-32.0) pg MCHC (31.0-37.0) g/dL RDW Std Deviation (28.0-62.0) fl RDW Coeff of Danny (11.0-15.0) % Plt Count (150-400) K/uL MPV (7.40-12.00) fL Neut % (Auto) (48.0-80.0) % Lymph % (Auto) (16.0-40.0) % [place] % (Auto) (0.0-15.0) % Eos % (Auto) (0.0-7.0) % Baso % (Auto) (0.0-1.5) % Neut # (Auto) (1.4-5.7) K/uL Lymph # (Auto) (0.6-2.4) K/uL [place] # (Auto) (0.0-0.8) K/uL Eos # (Auto) (0.0-0.7) K/uL Baso # (Auto) (0.0-0.1) K/uL Nucleated RBC % /100WBC Nucleated RBCs # K/uL INR Sodium (136-145) mmol/L Potassium (3.5-5.1) mmol/L Chloride (98-107) mmol/L Carbon Dioxide (21.0-32.0) mmol/L BUN (7.0-18.0) mg/dL Creatinine (0.6-1.0) mg/dL Est Cr Clr Drug Dosing mL/min Estimated GFR (MDRD) ml/min Glucose (74-106) mg/dL Calcium (8.5-10.1) mg/dL Total Bilirubin (0.2-1.0) mg/dL AST (15-37) IU/L ALT (14-63) IU/L Alkaline Phosphatase (46-116) U/L Troponin I (0.000-0.056) ng/mL B-Natriuretic Peptide 8 (<100) PG/ML Total Protein (6.4-8.2) g/dL Albumin (3.4-5.0) g/dL Globulin (2.6-4.0) g/dL Albumin/Globulin Ratio (0.9-1.6) Meds: Medications Generic Name Dose Route Start Last Admin Trade Name Freq PRN Reason Stop Dose Admin Sodium Chloride 1,000 mls @ 125 mls/hr 05/28/19 09:30 05/28/19 09:37 Normal Saline IV 125 mls/hr STAT BLADE Administration Sodium Chloride 10 ml 05/28/19 09:22 Saline Flush FLUSH ASDIRECTED PRN Keep Vein Open Sodium Chloride 2.5 ml 05/28/19 09:22 Saline Flush FLUSH ASDIRECTED PRN Keep Vein Open Discontinued Medications Generic Name Dose Route Start Last Admin Trade Name Freq PRN Reason Stop Dose Admin Aspirin 324 mg 05/28/19 09:22 05/28/19 09:36 Aspirin PO 05/28/19 09:23 324 mg ONETIME ONE Administration Nitroglycerin 1 gm 05/28/19 09:22 05/28/19 09:37 Nitro-Bid 2% TOP 05/28/19 09:23 1 gm ONETIME ONE Administration Departure - Departure Time of Disposition: 11:03 Disposition: Against Medical Advice 07 Condition: Undetermined Clinical Impression: Chest pain - Discharge Information Forms: ED Department Discharge Additional Instructions: The following information is given to patients seen in the emergency department who are being discharged to home. This information is to outline your options for follow-up care. We provide all patients seen in our emergency department with a follow-up referral. The need for follow-up, as well as the timing and circumstances, are variable depending upon the specifics of your emergency department visit. If you don't have a primary care physician on staff, we will provide you with a referral. We always advise you to contact your personal physician following an emergency department visit to inform them of the circumstance of the visit and for follow-up with them and/or the need for any referrals to a consulting specialist. The emergency department will also refer you to a specialist when appropriate. This referral assures that you have the opportunity for followup care with a specialist. All of these measure are taken in an effort to provide you with optimal care, which includes your followup. Under all circumstances we always encourage you to contact your private physician who remains a resource for coordinating your care. When calling for followup care, please make the office aware that this follow-up is from your recent emergency room visit. If for any reason you are refused follow-up, please contact the [facility] emergency department at and asked to speak to the emergency department charge nurse. Follow-up primary medical doctor MARYANNE continue current medications return as needed as discussed - My Orders Last 24 Hours: My Active Orders 05/28/19 09:21 Cardiac Monitoring [RC] . DIRECTED EKG Documentation Completion [RC] STAT Oxygen Therapy, ED [RC] ASDIRECTED Pulse Oximetry [RC] ASDIRECTED Saline Lock Insert [OM.PC] Stat 05/28/19 09:22 Sodium Chloride 0.9% [Saline Flush] 10 ml FLUSH ASDIRECTED PRN Sodium Chloride 0.9% [Saline Flush] 2.5 ml FLUSH ASDIRECTED PRN 05/28/19 09:30 Sodium Chloride 0.9% [Normal Saline] 1,000 ml IV STAT - Assessment/Plan Last 24 Hours: My Active Orders 05/28/19 09:21 Cardiac Monitoring [RC] . DIRECTED EKG Documentation Completion [RC] STAT Oxygen Therapy, ED [RC] ASDIRECTED Pulse Oximetry [RC] ASDIRECTED Saline Lock Insert [OM.PC] Stat 05/28/19 09:22 Sodium Chloride 0.9% [Saline Flush] 10 ml FLUSH ASDIRECTED PRN Sodium Chloride 0.9% [Saline Flush] 2.5 ml FLUSH ASDIRECTED PRN 05/28/19 09:30 Sodium Chloride 0.9% [Normal Saline] 1,000 ml IV STAT
[2019-05-28] MEDS ORDERED: Sodium Chloride 0.9% 1,000 ML IV SCH (09:30)
[2019-05-28 09:47] VITALS: PULSE 71
[2019-05-28 10:09] LABS: BLOOD UREA NITROGEN,BUN 16 mg/dL (7.0-18.0); CARBON DIOXIDE,CO2 29.7 mmol/L (21.0-32.0); CHLORIDE,CL 99 mmol/L (98-107); GLUCOSE RANDOM 311 mg/dL (74-106); POTASSIUM,K 3.3 mmol/L (3.5-5.1); SODIUM,NA 137 mmol/L (136-145)
--- NOTE | 2019-05-28 10:27 | CR ---
INDICATION: Chest pain; shortness of breath. COMPARISON: Chest radiograph August 27, 2017. TECHNIQUE: Portable AP chest. FINDINGS: Normal size cardiac silhouette. Clear lung cheek with no evidence of acute pneumonic infiltrates or CHF. No pneumothorax or pleural effusion. No interval change. IMPRESSION: Negative portable AP chest. Dictated by Adonis Thomason MD @ May 28 2019 10:24AM Signed by Dr. Adonis Thomason @ May 28 2019 10:25AM
[2019-05-28 11:42] VITALS: BP 138/77
== END 2019-05-28 11:26 | disposition left against medical advice (07) ==
LOC: MW.ED 09:12
DX: R07.9 Chest pain, unspecified (principal); E11.9 Type 2 diabetes mellitus without complications; Z95.5 Presence of coronary angioplasty implant and graft; Z87.891 Personal history of nicotine dependence; Z79.4 Long term (current) use of insulin
CPT/HCPCS: 36415; 71045; 80053; 83880; 84484; 85025; 85610; 93005; 96360; 96361; 99285; A9270; J7040; 99284

== ENCOUNTER 2019-06-25 14:56 | Observation (INO) | payer BC, OTHER ==
[2019-06-25] MEDS ORDERED: Aspirin 81 MG Tab.Chew PO ONE (15:17)
--- NOTE | 2019-06-25 15:35 | EDM.PDOC ---
ED HPI GENERAL MEDICAL PROBLEM - General Chief Complaint: Chest Pain Stated Complaint: CHEST DISCOMFORT Time Seen by Provider: 06/25/19 14:59 Source of Information: Reports: Patient History Limitations: Reports: No Limitations - History of Present Illness INITIAL COMMENTS - FREE TEXT/NARRATIVE: HISTORY AND PHYSICAL: History of present illness: Patient is a 54-year-old female who presents to the ED today for concern of chest discomfort over the past few weeks that has been coming and going. Patient states the chest discomfort has been constant now since this morning with some nausea. Patient states she has a history of a prior stent placed in 2013 and states her symptoms today are similar to when she had had the stent placed. Patient states she also has a history of type 2 diabetes. Patient states she has not taken anything today for her symptoms. Patient denies fever, chills, shortness of breath, or cough. Denies headache, neck stiff ness, change in vision, syncope, or near syncope. Denies vomiting, abdominal pain, diarrhea, constipation, or dysuria. Has not noted any blood in urine or stool. Patient has been eating and drinking appropriately. Review of systems: As per history of present illness and below otherwise all systems reviewed and negative. Past medical history: As per history of present illness and as reviewed below otherwise noncontributory. Surgical history: As per history of present illness and as reviewed below otherwise noncontributory. Social history: See social history for further information Family history: As per history of present illness and as reviewed below otherwise noncontributory. Physical exam: General: Patient is alert, oriented, and in no acute distress. Patient laying comfortably on exam table. HEENT: Atraumatic, normocephalic, pupils equal and reactive bilaterally, negative for conjunctival pallor or scleral icterus, mucous membranes moist, TMs normal bilaterally, throat clear, neck supple, nontender, trachea midline. No drooling or trismus noted. No meningeal signs. No hot potato voice noted. Lungs: Clear to auscultation, breath sounds equal bilaterally, chest nontender. Heart: S1S2, regular rate and rhythm without overt murmur Abdomen: Soft, nondistended, nontender. Negative for masses or hepatosplenomegaly. Negative for costovertebral tenderness. Pelvis: Stable nontender. Genitourinary: Deferred. Rectal: Deferred. Skin: Intact, warm, dry. No lesions or rashes noted. Extremities: Atraumatic, negative for cords or calf pain. Neurovascular unremarkable. Neuro: Awake, alert, oriented. Cranial nerves II through XII unremarkable. Cerebellum unremarkable. Motor and sensory unremarkable throughout. Exam nonfocal. Notes: Patient as well as his resolution of symptoms with therapeutics today. Dr. Sarabia consulted on patient and will admit to observation. Voices understanding and is agreeable to plan of care. Denies any further questions or concerns at this time. Diagnostics: CBC, CMP, UA, EKG, chest x-ray, troponin, lipase Therapeutics: ASA, Nitro Impression: Chest sherwood, r/o ACS Plan: 1. Admit to observation and Dr. Sarabia Definitive disposition and diagnosis as appropriate pending reevaluation and review of above. Chest pain x3 weeks Pain Score (Numeric/FACES): 7 - Related Data Allergies Allergy/AdvReac Type Severity Reaction Status Date / Time No Known Allergies Allergy Verified 06/25/19 15:04 Home Meds: Home Meds metFORMIN [Glucophage XR] 1,000 mg PO BID 03/31/17 [History] Furosemide [Lasix] 1 tab PO DAILY 07/22/17 [History] Diclofenac Sodium [Diclofono] 1 dose TOP ASDIRECTED 05/28/19 [History] Fluticasone Propionate [Flovent] 50 mcg NASBOTH BID 05/28/19 [History] Insulin Detemir [Levemir Flextouch] 40 unit INJECT DAILY 05/28/19 [History] Isosorbide Mononitrate [Ismo] 30 mg PO DAILY 05/28/19 [History] Losartan [Cozaar] 50 mg PO DAILY 05/28/19 [History] Metoprolol Succinate [Kapspargo Sprinkle] 25 mg PO DAILY 05/28/19 [History] Pantoprazole Sodium [Protonix] 40 mg PO DAILY 05/28/19 [History] metOLazone [Metolazone] 2.5 mg PO DAILY 05/28/19 [History] traMADol HCl [Tramadol HCl] 50 mg PO Q6HR 05/28/19 [History] Past Medical History - Past Health History Medical/Surgical History: Denies Medical/Surgical History HEENT History: Reports: None Cardiovascular History: Reports: Stents Respiratory History: Reports: None Gastrointestinal History: Reports: None Genitourinary History: Reports: None 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 CHEMIST 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: Reports: 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 Musculoskeletal History: Reports: None Neurological History: Reports: None Psychiatric History: Reports: None Endocrine/Metabolic History: Reports: Diabetes, Type II Hematologic History: Reports: None Immunologic History: Reports: None Oncologic (Cancer) History: Reports: None Dermatologic History: Reports: None - Infectious Disease History Infectious Disease History: Reports: Chicken Pox - Past Surgical History Head Surgeries/Procedures: Reports: None HEENT Surgical History: Reports: None Cardiovascular Surgical History: Reports: Coronary Artery Stent Respiratory Surgical History: Reports: None GI Surgical History: Reports: Cholecystectomy Female Surgical History: Reports: Oophorectomy Endocrine Surgical History: Reports: None Neurological Surgical History: Reports: None Musculoskeletal Surgical History: Reports: None Oncologic Surgical History: Reports: None Dermatological Surgical History: Reports: None Social & Family History - Family History Family Medical History: Noncontributory - Tobacco Use Smoking Status *Q: Never Smoker - Caffeine Use Caffeine Use: Reports: None Caffeine Use Comment: 4 cups daily - Recreational Drug Use Recreational Drug Use: No ED ROS GENERAL - Review of Systems Review Of Systems: Comprehensive ROS is negative, except as noted in HPI. ED EXAM, GENERAL - Physical Exam Exam: See Below (see dictation) Course - Vital Signs Last Recorded V/S: Last Vital Signs Temp 96.7 F 06/25/19 15:01 Pulse 88 06/25/19 15:01 Resp 16 06/25/19 15:01 BP 107/58 L 06/25/19 15:59 Pulse Ox 93 L 06/25/19 15:01 - Orders/Labs/Meds Orders: Active Orders 24 hr Category Date Time Status Admission Status [Patient Status] [ADT] Stat ADT 06/25/19 16:45 Ordered EKG Documentation Completion [RC] STAT Care 06/25/19 15:00 Active UA RFX ARIANA AND CULT IF INDIC [URIN] Stat Lab 06/25/19 15:00 Ordered Nitroglycerin [Nitrostat] Med 06/25/19 15:17 Active 0.4 mg SL Q5M PRN Medication Orders Nitroglycerin (Nitrostat) 0.4 mg SL Q5M PRN PRN Reason: Chest Pain Last Admin: 06/25/19 15:59 Dose: 0.4 mg Admin: 06/25/19 15:54 Dose: 0.4 mg Labs: Laboratory Tests 06/25/19 06/25/19 06/25/19 Range/Units 15:16 15:16 15:16 WBC 9.96 (4.0-11.0) K/uL RBC 4.03 L (4.30-5.90) M/uL Hgb 11.2 L (12.0-16.0) g/dL Hct 34.0 L (36.0-46.0) % MCV 84.4 (80.0-98.0) fL MCH 27.8 (27.0-32.0) pg MCHC 32.9 (31.0-37.0) g/dL RDW Std Deviation 43.5 (28.0-62.0) fl RDW Coeff of Danny 14 (11.0-15.0) % Plt Count 288 (150-400) K/uL MPV 12.10 H (7.40-12.00) fL Neut % (Auto) 69.6 (48.0-80.0) % Lymph % (Auto) 21.2 (16.0-40.0) % [place] % (Auto) 6.3 (0.0-15.0) % Eos % (Auto) 2.6 (0.0-7.0) % Baso % (Auto) 0.3 (0.0-1.5) % Neut # (Auto) 6.9 H (1.4-5.7) K/uL Lymph # (Auto) 2.1 (0.6-2.4) K/uL [place] # (Auto) 0.6 (0.0-0.8) K/uL Eos # (Auto) 0.3 (0.0-0.7) K/uL Baso # (Auto) 0.0 (0.0-0.1) K/uL Nucleated RBC % 0.0 /100WBC Nucleated RBCs # 0 K/uL Sodium 135 L (136-145) mmol/L Potassium 3.2 L (3.5-5.1) mmol/L Chloride 98 (98-107) mmol/L Carbon Dioxide 28.9 (21.0-32.0) mmol/L BUN 14 (7.0-18.0) mg/dL Creatinine 0.7 (0.6-1.0) mg/dL Est Cr Clr Drug Dosing 90.38 mL/min Estimated GFR (MDRD) > 60.0 ml/min Glucose 327 H (74-106) mg/dL Calcium 8.5 (8.5-10.1) mg/dL Total Bilirubin 0.5 (0.2-1.0) mg/dL AST 18 (15-37) IU/L ALT 27 (14-63) IU/L Alkaline Phosphatase 125 H (46-116) U/L Troponin I < 0.050 (0.000-0.056) ng/mL B-Natriuretic Peptide 15 (<100) PG/ML Total Protein 7.2 (6.4-8.2) g/dL Albumin 3.2 L (3.4-5.0) g/dL Globulin 4.0 (2.6-4.0) g/dL Albumin/Globulin Ratio 0.8 L (0.9-1.6) Lipase 71 L (73-393) U/L Meds: Medications Generic Name Dose Route Start Last Admin Trade Name Freq PRN Reason Stop Dose Admin Nitroglycerin 0.4 mg 06/25/19 15:17 06/25/19 15:59 Nitrostat SL 0.4 mg Q5M PRN Administration Chest Pain Discontinued Medications Generic Name Dose Route Start Last Admin Trade Name Freq PRN Reason Stop Dose Admin Aspirin 324 mg 06/25/19 15:17 06/25/19 15:34 Aspirin PO 06/25/19 15:18 324 mg ONETIME ONE Administration Departure - Departure Time of Disposition: 16:46 Disposition: Refer to Observation Clinical Impression: Chest pain Qualifiers: Chest pain type: unspecified Qualified Code(s): R07.9 - Chest pain, unspecified - Discharge Information Forms: ED Department Discharge - My Orders Last 24 Hours: My Active Orders 06/25/19 15:00 EKG Documentation Completion [RC] STAT UA RFX ARIANA AND CULT IF INDIC [URIN] Stat 06/25/19 15:17 Nitroglycerin [Nitrostat] 0.4 mg SL Q5M PRN 06/25/19 16:45 Admission Status [Patient Status] [ADT] Stat - Assessment/Plan Last 24 Hours: My Active Orders 06/25/19 15:00 EKG Documentation Completion [RC] STAT UA RFX ARIANA AND CULT IF INDIC [URIN] Stat 06/25/19 15:17 Nitroglycerin [Nitrostat] 0.4 mg SL Q5M PRN 06/25/19 16:45 Admission Status [Patient Status] [ADT] Stat
[2019-06-25] MEDS: Nitroglycerin 0.4 MG Tab.SL SL PRN ×2 (15:54→15:59)
--- NOTE | 2019-06-25 15:59 | CR ---
EXAM DATE: 06/25/19 PATIENT'S AGE: 54 Chest: AP view of the chest was obtained. Comparison: Prior chest x-ray of 05/28/19. Heart size and mediastinum are within normal limits. Lungs are clear with no acute parenchymal change. Bony structures are grossly intact. Impression: 1. Nothing acute is appreciated on AP chest x-ray. Diagnostic code #1 Report Signed by Proxy. LYLY
[2019-06-25 16:09] LABS: BLOOD UREA NITROGEN,BUN 14 mg/dL (7.0-18.0); CARBON DIOXIDE,CO2 28.9 mmol/L (21.0-32.0); CHLORIDE,CL 98 mmol/L (98-107); GLUCOSE RANDOM 327 mg/dL (74-106); LIPASE 71 U/L (73-393); POTASSIUM,K 3.2 mmol/L (3.5-5.1); SODIUM,NA 135 mmol/L (136-145)
[2019-06-25] MEDS ORDERED: Sodium Chloride 0.9% 1,000 ML IV ONE (16:45)
[2019-06-25] MEDS ORDERED: Ondansetron 4 MG Tab.DIS PO PRN (18:17)
[2019-06-25] MEDS ORDERED: Ondansetron 4 MG/2 ML SDV IVPUSH PRN (18:17)
[2019-06-25] MEDS ORDERED: Potassium Chloride 20 MEQ Tab.ER PO ONE (18:25)
[2019-06-25] MEDS ORDERED: Enoxaparin 40 MG/0.4 ML Syringe SUBCUT SCH (18:30)
--- NOTE | 2019-06-25 18:34 | PCM.HP.2 ---
H&P History of Present Illness - General Date of Service: 06/25/19 Admit Problem/Dx: Admission Diagnosis/Problem Admission Diagnosis/Problem Chest pain Source of Information: Patient History Limitations: Reports: No Limitations - History of Present Illness Initial Comments - Free Text/Narative: 54-year-old female presents with chest pain that has been intermittent in nature for the past 3 months. She has a PMH of cardiac stents placed in 2013 and diabetes mellitus type II. The pain is located under her left breast and radiates to behind her shoulders. She reports the pain is becoming more frequent as of late. It is unrelated to activity and is described as a "dull, achy pressure." Pain is rated as a 7/10 on pain scale. She also reports associated dizziness occasionally and nausea. She denies any fevers, shortness of breath, sweats or abdominal pain. She does report suffering from heartburn. Patient follows up with manager storage Dr. Caldwell. In the ER, patient was given full-dose aspirin and nitroglycerin. Initial troponin negative. EKG showed no acute ischemic changes. CXR was negative. Lipase level was normal. UA showed 3+ bacteria and nitrite positive. Patient admitted for further evaluation. Chest pain x3 weeks Pain Score (Numeric/FACES): 7 - Related Data Allergies/Adverse Reactions: Allergies Allergy/AdvReac Type Severity Reaction Status Date / Time No Known Allergies Allergy Verified 06/25/19 18:38 Home Medications: Home Meds metFORMIN [Glucophage XR] 1,000 mg PO BID 03/31/17 [History] Furosemide [Lasix] 1 tab PO DAILY 07/22/17 [History] Diclofenac Sodium [Diclofono] 1 dose TOP ASDIRECTED 05/28/19 [History] Fluticasone Propionate [Flovent] 50 mcg NASBOTH BID 05/28/19 [History] Insulin Detemir [Levemir Flextouch] 40 unit INJECT DAILY 05/28/19 [History] Isosorbide Mononitrate [Ismo] 30 mg PO DAILY 05/28/19 [History] Losartan [Cozaar] 50 mg PO DAILY 05/28/19 [History] Metoprolol Succinate [[place]sp[place] Sprinkle] 25 mg PO DAILY 05/28/19 [History] Pantoprazole Sodium [Protonix] 40 mg PO DAILY 05/28/19 [History] metOLazone [Metolazone] 2.5 mg PO DAILY 05/28/19 [History] traMADol HCl [Tramadol HCl] 50 mg PO Q6HR 05/28/19 [History] Past Medical History - Past Health History Medical/Surgical History: Denies Medical/Surgical History HEENT History: Reports: None Cardiovascular History: Reports: Stents Respiratory History: Reports: None Gastrointestinal History: Reports: None Genitourinary History: Reports: None [employer] History: Reports: None Musculoskeletal History: Reports: None Neurological History: Reports: None Psychiatric History: Reports: None Endocrine/Metabolic History: Reports: Diabetes, Type II Hematologic History: Reports: None Immunologic History: Reports: None Oncologic (Cancer) History: Reports: None Dermatologic History: Reports: None - Infectious Disease History Infectious Disease History: Reports: Chicken Pox - Past Surgical History Head Surgeries/Procedures: Reports: None HEENT Surgical History: Reports: None Cardiovascular Surgical History: Reports: Coronary Artery Stent Respiratory Surgical History: Reports: None GI Surgical History: Reports: Cholecystectomy Female Surgical History: Reports: Oophorectomy Endocrine Surgical History: Reports: None Neurological Surgical History: Reports: None Musculoskeletal Surgical History: Reports: None Oncologic Surgical History: Reports: None Dermatological Surgical History: Reports: None Social & Family History - Family History Family Medical History: Noncontributory - Tobacco Use Smoking Status *Q: Former Smoker Used Tobacco, but Quit: Yes Month/Year Tobacco Last Used: 25 years ago - Caffeine Use Caffeine Use: Reports: Coffee, Tea Caffeine Use Comment: 4 cups daily - Alcohol Use Date of Last Drink: 06/20/19 Time of Last Drink: 18:00 - Recreational Drug Use Recreational Drug Use: No H&P Review of Systems - Review of Systems: Review Of Systems: Comprehensive ROS is negative, except as noted in HPI. Exam - Exam Exam: See Below - Vital Signs Vital Signs: Last Vital Signs Temp 96.7 F 06/25/19 15:01 Pulse 74 06/25/19 17:35 Resp 18 06/25/19 17:35 BP 148/85 H 06/25/19 17:35 Pulse Ox 98 06/25/19 17:35 Weight: 228 lb 7.793 oz - Exam General: Alert, Oriented, Cooperative HEENT: Conjunctiva Clear, EOMI, Hearing Intact, Mucosa Moist & [place], Posterior Pharynx Clear Neck: Supple, Trachea Midline Lungs: Clear to Auscultation, Normal Respiratory Effort Cardiovascular: Regular Rate, Regular Rhythm GI/Abdominal Exam: Normal Bowel Sounds, Soft, Non-Tender, No Distention Extremities: Normal Inspection, Other (trace edema bilaterally) Peripheral Pulses: 2+: Posterior Tibial (L), Posterior Tibial (R) Skin: Warm, Dry, Intact Neurological: Cranial Nerves Intact, Strength Equal Bilateral, Normal Speech, Normal Tone Neuro Extensive - Mental Status: Alert, Oriented x3, Normal Mood/Affect Psychiatric: Alert, Normal Affect, Normal Mood - Patient Data Lab Results Last 24 hrs: Laboratory Results - last 24 hr 06/25/19 06/25/19 06/25/19 Range/Units 15:16 15:16 15:16 WBC 9.96 (4.0-11.0) K/uL RBC 4.03 L (4.30-5.90) M/uL Hgb 11.2 L (12.0-16.0) g/dL Hct 34.0 L (36.0-46.0) % MCV 84.4 (80.0-98.0) fL MCH 27.8 (27.0-32.0) pg MCHC 32.9 (31.0-37.0) g/dL RDW Std Deviation 43.5 (28.0-62.0) fl RDW Coeff of Danny 14 (11.0-15.0) % Plt Count 288 (150-400) K/uL MPV 12.10 H (7.40-12.00) fL Neut % (Auto) 69.6 (48.0-80.0) % Lymph % (Auto) 21.2 (16.0-40.0) % Brown % (Auto) 6.3 (0.0-15.0) % Eos % (Auto) 2.6 (0.0-7.0) % Baso % (Auto) 0.3 (0.0-1.5) % Neut # (Auto) 6.9 H (1.4-5.7) K/uL Lymph # (Auto) 2.1 (0.6-2.4) K/uL Brown # (Auto) 0.6 (0.0-0.8) K/uL Eos # (Auto) 0.3 (0.0-0.7) K/uL Baso # (Auto) 0.0 (0.0-0.1) K/uL Nucleated RBC % 0.0 /100WBC Nucleated RBCs # 0 K/uL Sodium 135 L (136-145) mmol/L Potassium 3.2 L (3.5-5.1) mmol/L Chloride 98 (98-107) mmol/L Carbon Dioxide 28.9 (21.0-32.0) mmol/L BUN 14 (7.0-18.0) mg/dL Creatinine 0.7 (0.6-1.0) mg/dL Est Cr Clr Drug Dosing 90.38 mL/min Estimated GFR (MDRD) > 60.0 ml/min Glucose 327 H (74-106) mg/dL Calcium 8.5 (8.5-10.1) mg/dL Total Bilirubin 0.5 (0.2-1.0) mg/dL AST 18 (15-37) IU/L ALT 27 (14-63) IU/L Alkaline Phosphatase 125 H (46-116) U/L Troponin I < 0.050 (0.000-0.056) ng/mL B-Natriuretic Peptide 15 (<100) PG/ML Total Protein 7.2 (6.4-8.2) g/dL Albumin 3.2 L (3.4-5.0) g/dL Globulin 4.0 (2.6-4.0) g/dL Albumin/Globulin Ratio 0.8 L (0.9-1.6) Lipase 71 L (73-393) U/L Urine Color Urine Appearance Urine pH (5.0-8.0) Ur Specific [place] (1.001-1.035) Urine Protein (NEGATIVE) mg/dL Urine Glucose (UA) (NEGATIVE) mg/dL Urine Ketones (NEGATIVE) mg/dL Urine Occult Blood (NEGATIVE) Urine Nitrite (NEGATIVE) Urine Bilirubin (NEGATIVE) Urine Urobilinogen (<2.0) EU/dL Ur Leukocyte Esterase (NEGATIVE) Urine RBC (0-2/HPF) Urine WBC (0-5/HPF) Ur Epithelial Cells (NONE-FEW) Urine Bacteria (NEGATIVE) Urine Mucus (NONE-MOD) 06/25/19 Range/Units 17:45 WBC (4.0-11.0) K/uL RBC (4.30-5.90) M/uL Hgb (12.0-16.0) g/dL Hct (36.0-46.0) % MCV (80.0-98.0) fL MCH (27.0-32.0) pg MCHC (31.0-37.0) g/dL RDW Std Deviation (28.0-62.0) fl RDW Coeff of Danny (11.0-15.0) % Plt Count (150-400) K/uL MPV (7.40-12.00) fL Neut % (Auto) (48.0-80.0) % Lymph % (Auto) (16.0-40.0) % Brown % (Auto) (0.0-15.0) % Eos % (Auto) (0.0-7.0) % Baso % (Auto) (0.0-1.5) % Neut # (Auto) (1.4-5.7) K/uL Lymph # (Auto) (0.6-2.4) K/uL Brown # (Auto) (0.0-0.8) K/uL Eos # (Auto) (0.0-0.7) K/uL Baso # (Auto) (0.0-0.1) K/uL Nucleated RBC % /100WBC Nucleated RBCs # K/uL Sodium (136-145) mmol/L Potassium (3.5-5.1) mmol/L Chloride (98-107) mmol/L Carbon Dioxide (21.0-32.0) mmol/L BUN (7.0-18.0) mg/dL Creatinine (0.6-1.0) mg/dL Est Cr Clr Drug Dosing mL/min Estimated GFR (MDRD) ml/min Glucose (74-106) mg/dL Calcium (8.5-10.1) mg/dL Total Bilirubin (0.2-1.0) mg/dL AST (15-37) IU/L ALT (14-63) IU/L Alkaline Phosphatase (46-116) U/L Troponin I (0.000-0.056) ng/mL B-Natriuretic Peptide (<100) PG/ML Total Protein (6.4-8.2) g/dL Albumin (3.4-5.0) g/dL Globulin (2.6-4.0) g/dL Albumin/Globulin Ratio (0.9-1.6) Lipase (73-393) U/L Urine Color YELLOW Urine Appearance SLT CLOUDY Urine pH 6.0 (5.0-8.0) Ur Specific [place] 1.010 (1.001-1.035) Urine Protein NEGATIVE (NEGATIVE) mg/dL Urine Glucose (UA) >=1000 (NEGATIVE) mg/dL Urine Ketones NEGATIVE (NEGATIVE) mg/dL Urine Occult Blood NEGATIVE (NEGATIVE) Urine Nitrite POSITIVE H (NEGATIVE) Urine Bilirubin NEGATIVE (NEGATIVE) Urine Urobilinogen 0.2 (<2.0) EU/dL Ur Leukocyte Esterase NEGATIVE (NEGATIVE) Urine RBC 0-2 (0-2/HPF) Urine WBC 1-3 (0-5/HPF) Ur Epithelial Cells MODERATE (NONE-FEW) Urine Bacteria 3+ H (NEGATIVE) Urine Mucus LIGHT (NONE-MOD) Result Diagrams: 06/25/19 15:16 06/25/19 15:16 Problem List Initiated/Reviewed/Updated: Yes Orders Last 24hrs: Active Orders 24 hr Category Date Time Status Admission Status [Patient Status] [ADT] Stat ADT 06/25/19 16:45 Active Blood Glucose Check, Bedside [RC] TIDMEALS Care 06/25/19 18:17 Active Oxygen Therapy [RC] PRN Care 06/25/19 18:17 Active Telemetry Monitoring [Cardiac Monitoring] [RC] . Care 06/25/19 18:20 Active DIRECTED Up ad Billie [RC] ASDIRECTED Care 06/25/19 18:17 Active VTE/DVT Education [RC] PER UNIT ROUTINE Care 06/25/19 18:17 Active Vital Signs [RC] Q4H Care 06/25/19 18:17 Active Heart Healthy Diet [DIET] Diet 06/25/19 Dinner Active CBC WITH AUTO DIFF [HEME] AM Lab 06/26/19 05:11 Ordered COMPREHENSIVE METABOLIC PN,CMP [CHEM] AM Lab 06/26/19 05:11 Ordered CULTURE URINE [RM] Stat Lab 06/25/19 17:45 Received TROPONIN I [CHEM] Q6H Lab 06/25/19 21:00 Ordered TROPONIN I [CHEM] Q6H Lab 06/26/19 03:00 Ordered Acetaminophen [Tylenol] Med 06/25/19 18:17 Ordered 650 mg PO Q4H PRN Enoxaparin [Lovenox] Med 06/25/19 18:30 Ordered 40 mg SUBCUT Q24H Insulin Aspart [NovoLOG] Med 06/26/19 07:30 Ordered See Protocol SUBCUT TIDAC Nitroglycerin [Nitrostat] Med 06/25/19 15:17 Active 0.4 mg SL Q5M PRN Ondansetron [Zofran ODT] Med 06/25/19 18:17 Ordered 4 mg PO Q4H PRN Ondansetron [Zofran] Med 06/25/19 18:17 Ordered 4 mg IVPUSH Q4H PRN Pantoprazole [ProTONIX] Med 06/25/19 18:22 Ordered 40 mg PO DAILY Potassium Chloride [Klor-Con M20] Med 06/25/19 18:25 Once 40 meq PO ONETIME ONE Resuscitation Status Routine Resus Stat 06/25/19 18:17 Ordered Medication Orders Acetaminophen (Tylenol) 650 mg PO Q4H PRN PRN Reason: Pain (Mild 1-3)/fever Enoxaparin Sodium (Lovenox) 40 mg SUBCUT Q24H BLADE Insulin Aspart (Novolog) 0 unit SUBCUT TIDAC BLADE; Protocol Nitroglycerin (Nitrostat) 0.4 mg SL Q5M PRN PRN Reason: Chest Pain Last Admin: 06/25/19 15:59 Dose: 0.4 mg Admin: 06/25/19 15:54 Dose: 0.4 mg Ondansetron HCl (Zofran Odt) 4 mg PO Q4H PRN PRN Reason: nausea, able to take PO Ondansetron HCl (Zofran) 4 mg IVPUSH Q4H PRN PRN Reason: Nausea Pantoprazole Sodium (Protonix) 40 mg PO DAILY BLADE Potassium Chloride (Klor-Con M20) 40 meq PO ONETIME ONE Stop: 06/25/19 18:26 Assessment/Plan Comment:: Assessment: 1. Chest pain, ACS rule out. 2. Acute cystitis. 3. Hypokalemia, mild. 4. Diabetes mellitus type 2. 5. PMH of cardiac stent placement and gastric bypass surgery. Plan: 1. For chest pain, ACS r/o, will trend troponins q6h and keep patient on telemetry. EKG showed no acute ischemic changes and initial troponin was negative. Will order TSH and lipid panel. 2. For acute cystitis, will treat with PO Bactrim BID x 3 days. 3. For hypokalemia, will replete with 40 mEq potassium chloride. 4. For diabetes mellitus type II, will have patient on SSI. Accuchecks TID. 5. For past medical history, will continue with home medications.
[2019-06-25] MEDS: Pantoprazole 40 MG Tab.CR PO SCH (18:51)
[2019-06-25] MEDS: Acetaminophen 325 MG Tab PO PRN (18:51)
[2019-06-25] MEDS: Sulfamethoxazole/Trimethoprim 800-160 MG Tab PO SCH (20:59)
[2019-06-26 03:31] LABS: BLOOD UREA NITROGEN,BUN 11 mg/dL (7.0-18.0); CARBON DIOXIDE,CO2 34.1 mmol/L (21.0-32.0); CHLORIDE,CL 102 mmol/L (98-107); GLUCOSE RANDOM 246 mg/dL (74-106); POTASSIUM,K 3.2 mmol/L (3.5-5.1); SODIUM,NA 139 mmol/L (136-145)
[2019-06-26] MEDS: Acetaminophen 325 MG Tab PO PRN (05:00)
[2019-06-26] MEDS ORDERED: Potassium Chloride 20 MEQ Tab.ER PO ONE (07:21)
[2019-06-26] MEDS ORDERED: Insulin Aspart 100 Units/ML 3 ML Pen SUBCUT SCH (07:30)
[2019-06-26] MEDS: Pantoprazole 40 MG Tab.CR PO SCH (08:49)
[2019-06-26] MEDS: Sulfamethoxazole/Trimethoprim 800-160 MG Tab PO SCH (08:49)
[2019-06-26 12:13] VITALS: BP 116/68; PULSE 60
--- NOTE | 2019-06-26 15:21 | PCM.DCSUM1 ---
<Roberto Ramírez - Last Filed: 06/26/19 15:17> Discharge Summary - Hospital Course Free Text/Narrative:: 54-year-old female admitted for chest pain and ACS rule out. She has a PMH of cardiac stent placement and DM II. She presented with intermittent left-sided chest pain for the past 3 weeks that has become more frequent recently. Pain is unrelated to activity and was described as dull and achy. Overnight she remained on telemetry and was in normal sinus rhythm with occasional PVC's. Troponins were negative x 3. EKG on admission showed no acute ischemic changes. 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 Caldwell. Furthermore, patient found to have UTI and discharged on Bactrim DS BID x 3 days. - Discharge Data Discharge Date: 06/26/19 Discharge Disposition: Home, Self-Care 01 Condition: Stable - Referral to Home Health Primary Care Physician: [facility] - Patient Instructions Diet: Diabetic Diet Activity: As Tolerated Notify Provider of: Fever, Increased Pain, Swelling and Redness, Drainage, Nausea and/or Vomiting - Discharge Plan *PRESCRIPTION DRUG MONITORING PROGRAM REVIEWED*: Not Applicable *COPY OF PRESCRIPTION DRUG MONITORING REPORT IN PATIENT PRAMOD: Not Applicable Prescriptions/Med Rec: Sulfamethoxazole/Trimethoprim [Septra DS] 1 tab PO BID 2 Days #4 tablet Home Medications: Home Meds metFORMIN [Glucophage XR] 1,000 mg PO BID 03/31/17 [History] Furosemide [Lasix] 1 tab PO DAILY 07/22/17 [History] Insulin Detemir [Levemir Flextouch] 50 unit INJECT DAILY 05/28/19 [History] Isosorbide Mononitrate [Ismo] 30 mg PO DAILY 05/28/19 [History] Losartan [Cozaar] 50 mg PO DAILY 05/28/19 [History] Metoprolol Succinate [Kapspargo Sprinkle] 25 mg PO DAILY 05/28/19 [History] Pantoprazole Sodium [Protonix] 40 mg PO DAILY 05/28/19 [History] metOLazone [Metolazone] 2.5 mg PO DAILY 05/28/19 [History] traMADol HCl [Tramadol HCl] 50 mg PO Q6HR PRN 05/28/19 [History] Aspirin [Adult Low Dose Aspirin EC] 81 mg PO DAILY 06/26/19 [History] Potassium Chloride [Klor-Con] 20 meq PO DAILY 06/26/19 [History] Sulfamethoxazole/Trimethoprim [Septra DS] 1 tab PO BID 2 Days #4 tablet [Rx] atorvaSTATin [Lipitor] 40 mg PO BEDTIME 06/26/19 [History] Patient Handouts: Sulfamethoxazole; Trimethoprim, SMX-TMP tablets Referrals: Mario Caldwell MD [Physician] - 07/01/19 4:00 pm Lindsay Jade NP [Ordering Only Provider] - 07/10/19 9:30 am - Discharge Summary/Plan Comment DC Time >30 min.: No - Patient Data Vitals - Most Recent: Last Vital Signs Temp 96.8 F 06/26/19 12:00 Pulse 60 06/26/19 12:00 Resp 16 06/26/19 12:00 BP 116/68 06/26/19 12:00 Pulse Ox 97 06/26/19 12:00 Weight - Most Recent: 103.64 kg I&O - Last 24 hours: Intake & Output 06/26/19 06/26/19 06/26/19 06:59 14:59 22:59 Intake Total 400 460 Output Total 600 600 Balance -200 -140 Lab Results - Last 24 hrs: Laboratory Results - last 24 hr 06/25/19 06/25/19 06/25/19 Range/Units 15:16 15:16 15:16 WBC 9.96 (4.0-11.0) K/uL RBC 4.03 L (4.30-5.90) M/uL Hgb 11.2 L (12.0-16.0) g/dL Hct 34.0 L (36.0-46.0) % MCV 84.4 (80.0-98.0) fL MCH 27.8 (27.0-32.0) pg MCHC 32.9 (31.0-37.0) g/dL RDW Std Deviation 43.5 (28.0-62.0) fl RDW Coeff of Danny 14 (11.0-15.0) % Plt Count 288 (150-400) K/uL MPV 12.10 H (7.40-12.00) fL Neut % (Auto) 69.6 (48.0-80.0) % Lymph % (Auto) 21.2 (16.0-40.0) % Perry % (Auto) 6.3 (0.0-15.0) % Eos % (Auto) 2.6 (0.0-7.0) % Baso % (Auto) 0.3 (0.0-1.5) % Neut # (Auto) 6.9 H (1.4-5.7) K/uL Lymph # (Auto) 2.1 (0.6-2.4) K/uL Perry # (Auto) 0.6 (0.0-0.8) K/uL Eos # (Auto) 0.3 (0.0-0.7) K/uL Baso # (Auto) 0.0 (0.0-0.1) K/uL Nucleated RBC % 0.0 /100WBC Nucleated RBCs # 0 K/uL Sodium 135 L (136-145) mmol/L Potassium 3.2 L (3.5-5.1) mmol/L Chloride 98 (98-107) mmol/L Carbon Dioxide 28.9 (21.0-32.0) mmol/L BUN 14 (7.0-18.0) mg/dL Creatinine 0.7 (0.6-1.0) mg/dL Est Cr Clr Drug Dosing 90.38 mL/min Estimated GFR (MDRD) > 60.0 ml/min Glucose 327 H (74-106) mg/dL POC Glucose (60-110) mg/dL Calcium 8.5 (8.5-10.1) mg/dL Total Bilirubin 0.5 (0.2-1.0) mg/dL AST 18 (15-37) IU/L ALT 27 (14-63) IU/L Alkaline Phosphatase 125 H (46-116) U/L Troponin I < 0.050 (0.000-0.056) ng/mL B-Natriuretic Peptide 15 (<100) PG/ML Total Protein 7.2 (6.4-8.2) g/dL Albumin 3.2 L (3.4-5.0) g/dL Globulin 4.0 (2.6-4.0) g/dL Albumin/Globulin Ratio 0.8 L (0.9-1.6) Triglycerides (0-200) mg/dL Cholesterol (50-200) mg/dL LDL Cholesterol, Calc (60-180) mg/dL VLDL Cholesterol (5-55) mg/dL HDL Cholesterol (40-60) mg/dL Cholesterol/HDL Ratio (3.3-6.0) Lipase 71 L (73-393) U/L TSH 3rd Generation (0.36-3.74) uIU/mL Urine Color Urine Appearance Urine pH (5.0-8.0) Ur Specific [place] (1.001-1.035) Urine Protein (NEGATIVE) mg/dL Urine Glucose (UA) (NEGATIVE) mg/dL Urine Ketones (NEGATIVE) mg/dL Urine Occult Blood (NEGATIVE) Urine Nitrite (NEGATIVE) Urine Bilirubin (NEGATIVE) Urine Urobilinogen (<2.0) EU/dL Ur Leukocyte Esterase (NEGATIVE) Urine RBC (0-2/HPF) Urine WBC (0-5/HPF) Ur Epithelial Cells (NONE-FEW) Urine Bacteria (NEGATIVE) Urine Mucus (NONE-MOD) 06/25/19 06/25/19 06/25/19 Range/Units 15:16 17:45 21:07 WBC (4.0-11.0) K/uL RBC (4.30-5.90) M/uL Hgb (12.0-16.0) g/dL Hct (36.0-46.0) % MCV (80.0-98.0) fL MCH (27.0-32.0) pg MCHC (31.0-37.0) g/dL RDW Std Deviation (28.0-62.0) fl RDW Coeff of Danny (11.0-15.0) % Plt Count (150-400) K/uL MPV (7.40-12.00) fL Neut % (Auto) (48.0-80.0) % Lymph % (Auto) (16.0-40.0) % Perry % (Auto) (0.0-15.0) % Eos % (Auto) (0.0-7.0) % Baso % (Auto) (0.0-1.5) % Neut # (Auto) (1.4-5.7) K/uL Lymph # (Auto) (0.6-2.4) K/uL Perry # (Auto) (0.0-0.8) K/uL Eos # (Auto) (0.0-0.7) K/uL Baso # (Auto) (0.0-0.1) K/uL Nucleated RBC % /100WBC Nucleated RBCs # K/uL Sodium (136-145) mmol/L Potassium (3.5-5.1) mmol/L Chloride (98-107) mmol/L Carbon Dioxide (21.0-32.0) mmol/L BUN (7.0-18.0) mg/dL Creatinine (0.6-1.0) mg/dL Est Cr Clr Drug Dosing mL/min Estimated GFR (MDRD) ml/min Glucose (74-106) mg/dL POC Glucose (60-110) mg/dL Calcium (8.5-10.1) mg/dL Total Bilirubin (0.2-1.0) mg/dL AST (15-37) IU/L ALT (14-63) IU/L Alkaline Phosphatase (46-116) U/L Troponin I < 0.050 (0.000-0.056) ng/mL B-Natriuretic Peptide (<100) PG/ML Total Protein (6.4-8.2) g/dL Albumin (3.4-5.0) g/dL Globulin (2.6-4.0) g/dL Albumin/Globulin Ratio (0.9-1.6) Triglycerides 245 H (0-200) mg/dL Cholesterol 125 (50-200) mg/dL LDL Cholesterol, Calc 25 L (60-180) mg/dL VLDL Cholesterol 49 (5-55) mg/dL HDL Cholesterol 51 (40-60) mg/dL Cholesterol/HDL Ratio 2.5 L (3.3-6.0) Lipase (73-393) U/L TSH 3rd Generation 0.90 (0.36-3.74) uIU/mL Urine Color YELLOW Urine Appearance SLT CLOUDY Urine pH 6.0 (5.0-8.0) Ur Specific [place] 1.010 (1.001-1.035) Urine Protein NEGATIVE (NEGATIVE) mg/dL Urine Glucose (UA) >=1000 (NEGATIVE) mg/dL Urine Ketones NEGATIVE (NEGATIVE) mg/dL Urine Occult Blood NEGATIVE (NEGATIVE) Urine Nitrite POSITIVE H (NEGATIVE) Urine Bilirubin NEGATIVE (NEGATIVE) Urine Urobilinogen 0.2 (<2.0) EU/dL Ur Leukocyte Esterase NEGATIVE (NEGATIVE) Urine RBC 0-2 (0-2/HPF) Urine WBC 1-3 (0-5/HPF) Ur Epithelial Cells MODERATE (NONE-FEW) Urine Bacteria 3+ H (NEGATIVE) Urine Mucus LIGHT (NONE-MOD) 06/26/19 06/26/19 06/26/19 Range/Units 03:07 03:07 03:07 WBC 7.65 (4.0-11.0) K/uL RBC 3.91 L (4.30-5.90) M/uL Hgb 10.9 L (12.0-16.0) g/dL Hct 32.9 L (36.0-46.0) % MCV 84.1 (80.0-98.0) fL MCH 27.9 (27.0-32.0) pg MCHC 33.1 (31.0-37.0) g/dL RDW Std Deviation 43.5 (28.0-62.0) fl RDW Coeff of Danny 14 (11.0-15.0) % Plt Count 253 (150-400) K/uL MPV 12.00 (7.40-12.00) fL Neut % (Auto) 58.3 (48.0-80.0) % Lymph % (Auto) 30.2 (16.0-40.0) % Perry % (Auto) 8.0 (0.0-15.0) % Eos % (Auto) 3.1 (0.0-7.0) % Baso % (Auto) 0.4 (0.0-1.5) % Neut # (Auto) 4.5 (1.4-5.7) K/uL Lymph # (Auto) 2.3 (0.6-2.4) K/uL Perry # (Auto) 0.6 (0.0-0.8) K/uL Eos # (Auto) 0.2 (0.0-0.7) K/uL Baso # (Auto) 0.0 (0.0-0.1) K/uL Nucleated RBC % 0.0 /100WBC Nucleated RBCs # 0 K/uL Sodium 139 (136-145) mmol/L Potassium 3.2 L (3.5-5.1) mmol/L Chloride 102 (98-107) mmol/L Carbon Dioxide 34.1 H (21.0-32.0) mmol/L BUN 11 (7.0-18.0) mg/dL Creatinine 0.6 (0.6-1.0) mg/dL Est Cr Clr Drug Dosing 101.51 mL/min Estimated GFR (MDRD) > 60.0 ml/min Glucose 246 H (74-106) mg/dL POC Glucose (60-110) mg/dL Calcium 8.3 L (8.5-10.1) mg/dL Total Bilirubin 0.6 (0.2-1.0) mg/dL AST 17 (15-37) IU/L ALT 25 (14-63) IU/L Alkaline Phosphatase 96 (46-116) U/L Troponin I < 0.050 (0.000-0.056) ng/mL B-Natriuretic Peptide (<100) PG/ML Total Protein 6.6 (6.4-8.2) g/dL Albumin 2.9 L (3.4-5.0) g/dL Globulin 3.7 (2.6-4.0) g/dL Albumin/Globulin Ratio 0.8 L (0.9-1.6) Triglycerides (0-200) mg/dL Cholesterol (50-200) mg/dL LDL Cholesterol, Calc (60-180) mg/dL VLDL Cholesterol (5-55) mg/dL HDL Cholesterol (40-60) mg/dL Cholesterol/HDL Ratio (3.3-6.0) Lipase (73-393) U/L TSH 3rd Generation (0.36-3.74) uIU/mL Urine Color Urine Appearance Urine pH (5.0-8.0) Ur Specific [place] (1.001-1.035) Urine Protein (NEGATIVE) mg/dL Urine Glucose (UA) (NEGATIVE) mg/dL Urine Ketones (NEGATIVE) mg/dL Urine Occult Blood (NEGATIVE) Urine Nitrite (NEGATIVE) Urine Bilirubin (NEGATIVE) Urine Urobilinogen (<2.0) EU/dL Ur Leukocyte Esterase (NEGATIVE) Urine RBC (0-2/HPF) Urine WBC (0-5/HPF) Ur Epithelial Cells (NONE-FEW) Urine Bacteria (NEGATIVE) Urine Mucus (NONE-MOD) 11/22/19 11/22/19 Range/Units 06:11 12:03 WBC (4.0-11.0) K/uL RBC (4.30-5.90) M/uL Hgb (12.0-16.0) g/dL Hct (36.0-46.0) % MCV (80.0-98.0) fL MCH (27.0-32.0) pg MCHC (31.0-37.0) g/dL RDW Std Deviation (28.0-62.0) fl RDW Coeff of Danny (11.0-15.0) % Plt Count (150-400) K/uL MPV (7.40-12.00) fL Neut % (Auto) (48.0-80.0) % Lymph % (Auto) (16.0-40.0) % Perry % (Auto) (0.0-15.0) % Eos % (Auto) (0.0-7.0) % Baso % (Auto) (0.0-1.5) % Neut # (Auto) (1.4-5.7) K/uL Lymph # (Auto) (0.6-2.4) K/uL Perry # (Auto) (0.0-0.8) K/uL Eos # (Auto) (0.0-0.7) K/uL Baso # (Auto) (0.0-0.1) K/uL Nucleated RBC % /100WBC Nucleated RBCs # K/uL Sodium (136-145) mmol/L Potassium (3.5-5.1) mmol/L Chloride (98-107) mmol/L Carbon Dioxide (21.0-32.0) mmol/L BUN (7.0-18.0) mg/dL Creatinine (0.6-1.0) mg/dL Est Cr Clr Drug Dosing mL/min Estimated GFR (MDRD) ml/min Glucose (74-106) mg/dL POC Glucose 245 H 223 H (60-110) mg/dL Calcium (8.5-10.1) mg/dL Total Bilirubin (0.2-1.0) mg/dL AST (15-37) IU/L ALT (14-63) IU/L Alkaline Phosphatase (46-116) U/L Troponin I (0.000-0.056) ng/mL B-Natriuretic Peptide (<100) PG/ML Total Protein (6.4-8.2) g/dL Albumin (3.4-5.0) g/dL Globulin (2.6-4.0) g/dL Albumin/Globulin Ratio (0.9-1.6) Triglycerides (0-200) mg/dL Cholesterol (50-200) mg/dL LDL Cholesterol, Calc (60-180) mg/dL VLDL Cholesterol (5-55) mg/dL HDL Cholesterol (40-60) mg/dL Cholesterol/HDL Ratio (3.3-6.0) Lipase (73-393) U/L TSH 3rd Generation (0.36-3.74) uIU/mL Urine Color Urine Appearance Urine pH (5.0-8.0) Ur Specific [place] (1.001-1.035) Urine Protein (NEGATIVE) mg/dL Urine Glucose (UA) (NEGATIVE) mg/dL Urine Ketones (NEGATIVE) mg/dL Urine Occult Blood (NEGATIVE) Urine Nitrite (NEGATIVE) Urine Bilirubin (NEGATIVE) Urine Urobilinogen (<2.0) EU/dL Ur Leukocyte Esterase (NEGATIVE) Urine RBC (0-2/HPF) Urine WBC (0-5/HPF) Ur Epithelial Cells (NONE-FEW) Urine Bacteria (NEGATIVE) Urine Mucus (NONE-MOD) Med Orders - Current: Current Medications Discontinued Medications Acetaminophen (Tylenol) 650 mg PO Q4H PRN PRN Reason: Pain (Mild 1-3)/fever Last Admin: 06/26/19 05:00 Dose: 650 mg Aspirin (Aspirin) 324 mg PO ONETIME ONE Stop: 06/25/19 15:18 Last Admin: 06/25/19 15:34 Dose: 324 mg Enoxaparin Sodium (Lovenox) 40 mg SUBCUT Q24H BLADE Last Admin: 06/25/19 18:52 Dose: 40 mg Sodium Chloride (Normal Saline) 1,000 mls @ 999 mls/hr IV .Bolus ONE Stop: 06/25/19 17:45 Last Admin: 06/25/19 16:45 Dose: 999 mls/hr Insulin Aspart (Novolog) 0 unit SUBCUT TIDAC BLADE; Protocol Last Admin: 06/26/19 07:47 Dose: 4 units Nitroglycerin (Nitrostat) 0.4 mg SL Q5M PRN PRN Reason: Chest Pain Last Admin: 06/25/19 15:59 Dose: 0.4 mg Ondansetron HCl (Zofran Odt) 4 mg PO Q4H PRN PRN Reason: nausea, able to take PO Ondansetron HCl (Zofran) 4 mg IVPUSH Q4H PRN PRN Reason: Nausea Pantoprazole Sodium (Protonix) 40 mg PO DAILY [facility] Last Admin: 06/26/19 08:49 Dose: 40 mg Potassium Chloride (Klor-Con M20) 40 meq PO ONETIME ONE Stop: 06/25/19 18:26 Last Admin: 06/25/19 18:51 Dose: 40 meq Potassium Chloride (Klor-Con M20) 40 meq PO ONETIME ONE Stop: 06/26/19 07:22 Last Admin: 06/26/19 07:50 Dose: 40 meq Trimethoprim/Sulfamethoxazole (Septra Ds) 1 tab PO BID BLADE Stop: 06/28/19 21:01 Last Admin: 06/26/19 08:49 Dose: 1 tab <Leobardo Sarabia - Last Filed: 06/27/19 12:47> Discharge Summary - Referral to Home Health Primary Care Physician: [facility] - Patient Data Vitals - Most Recent: Last Vital Signs Temp 36.0 C 06/26/19 12:00 Pulse 60 06/26/19 12:00 Resp 16 06/26/19 12:00 BP 116/68 06/26/19 12:00 Pulse Ox 97 06/26/19 12:00 ARIANA Results - Last 24 hrs: Microbiology 06/25/19 17:45 Urine Culture - Final Urine, Clean Catch Escherichia Coli Normal Urogenital Tatiana Med Orders - Current: Current Medications Discontinued Medications Acetaminophen (Tylenol) 650 mg PO Q4H PRN PRN Reason: Pain (Mild 1-3)/fever Last Admin: 06/26/19 05:00 Dose: 650 mg Aspirin (Aspirin) 324 mg PO ONETIME ONE Stop: 06/25/19 15:18 Last Admin: 06/25/19 15:34 Dose: 324 mg Enoxaparin Sodium (Lovenox) 40 mg SUBCUT Q24H [facility] Last Admin: 06/25/19 18:52 Dose: 40 mg Sodium Chloride (Normal Saline) 1,000 mls @ 999 mls/hr IV .Bolus ONE Stop: 06/25/19 17:45 Last Admin: 06/25/19 16:45 Dose: 999 mls/hr Insulin Aspart (Novolog) 0 unit SUBCUT TIDAC [facility]; Protocol Last Admin: 06/26/19 07:47 Dose: 4 units Nitroglycerin (Nitrostat) 0.4 mg SL Q5M PRN PRN Reason: Chest Pain Last Admin: 06/25/19 15:59 Dose: 0.4 mg Ondansetron HCl (Zofran Odt) 4 mg PO Q4H PRN PRN Reason: nausea, able to take PO Ondansetron HCl (Zofran) 4 mg IVPUSH Q4H PRN PRN Reason: Nausea Pantoprazole Sodium (Protonix) 40 mg PO DAILY [facility] Last Admin: 06/26/19 08:49 Dose: 40 mg Potassium Chloride (Klor-Con M20) 40 meq PO ONETIME ONE Stop: 06/25/19 18:26 Last Admin: 06/25/19 18:51 Dose: 40 meq Potassium Chloride (Klor-Con M20) 40 meq PO ONETIME ONE Stop: 06/26/19 07:22 Last Admin: 06/26/19 07:50 Dose: 40 meq Trimethoprim/Sulfamethoxazole (Septra Ds) 1 tab PO BID [facility] Stop: 06/28/19 21:01 Last Admin: 06/26/19 08:49 Dose: 1 tab - Free Text/Narrative Note: I have examined the patient with the resident. I have discussed findings and treatment plan with the resident. I agree with the assessment and plan as outlined in the following note.
== END 2019-06-26 12:30 | disposition home or self-care (01) ==
LOC: MW.ED 14:56 → MW.MS 16:45 → UNDOADMOB 16:45
PROVIDERS: ADMIT Internal Medicine; ATTEND Internal Medicine
DX: R07.89 Other chest pain (principal); N30.00 Acute cystitis without hematuria; E87.6 Hypokalemia; I49.3 Ventricular premature depolarization; E11.9 Type 2 diabetes mellitus without complications; Z95.5 Presence of coronary angioplasty implant and graft; Z87.891 Personal history of nicotine dependence; Z79.4 Long term (current) use of insulin; Z79.82 Long term (current) use of aspirin; Z79.899 Other long term (current) drug therapy
CPT/HCPCS: 36415; 71045; 80053; 80061; 81001; 82962; 83690; 83880; 84443; 84484; 85025; 87086; 87088; 87186; 93005; 96360; 99285; A9270; J1650; J1815; J7040; 96372; G0378

== ENCOUNTER 2019-07-26 19:18 | Emergency (ER) | payer BC, OTHER ==
[2019-07-26] MEDS ORDERED: Ketorolac 60 MG/2 ML SDV IM ONE (20:02)
--- NOTE | 2019-07-26 20:06 | EDM.PDOC ---
ED HPI GENERAL MEDICAL PROBLEM - General Chief Complaint: Abdominal Pain Stated Complaint: LEFT SIDE PAIN Time Seen by Provider: 07/26/19 20:02 Source of Information: Reports: Patient History Limitations: Reports: No Limitations - History of Present Illness INITIAL COMMENTS - FREE TEXT/NARRATIVE: HISTORY AND PHYSICAL: History of present illness: Patient is a 54-year-old male presents to ED with complaint of left side paid. She states she has had pain for hte past 4-5 days. She was talking to a friend marilou who told her he had similar symptoms and was diagnosed with pancreatitis and was in the ICU and this prompted her to come to the ED marilou. She denies nausea, vomiting, chest pain, shortness of breath, dysuria, back pain. Surgical history includes cholecystectomy. She reports occasional social alcohol use. Review of systems: As per history of present illness and below otherwise all systems reviewed and negative. Past medical history: As per history of present illness and as reviewed below otherwise noncontributory. Surgical history: As per history of present illness and as reviewed below otherwise noncontributory. Social history: No reported history of drug or alcohol abuse. Family history: As per history of present illness and as reviewed below otherwise noncontributory. Physical exam: General: Patient sitting comfortably in no acute distress and nontoxic appearing HEENT: Atraumatic, normocephalic, pupils reactive, negative for conjunctival pallor or scleral icterus, mucous membranes moist, throat clear, neck supple, nontender, trachea midline. No meningeal signs. Lungs: Clear to auscultation, breath sounds equal bilaterally, chest nontender. Heart: S1S2, regular, negative for clicks, rubs, or overt murmur. Abdomen: Mild left upper quadrant abdominal tenderness to palpation. Soft, nondistended. Negative for masses or hepatosplenomegaly. Left costovertebral tenderness. No rigidity, rebound, guarding. Pelvis: Stable nontender. Genitourinary: Deferred. Rectal: Deferred. Extremities: Atraumatic, negative for cords or calf pain. Neurovascular unremarkable. Neuro: Awake, alert, oriented. Cranial nerves II through XII unremarkable. Cerebellum unremarkable. Motor and sensory unremarkable throughout. Exam nonfocal. Notes: Diagnostics: CBC, CMP, lipase Therapeutics: 60mg Toradol IM Prescriptions: Bactrim Impression: UTI Definitive disposition and diagnosis as appropriate pending reevaluation and review of above. Left Upper Abdomen Pain Score (Numeric/FACES): 8 - Related Data Allergies Allergy/AdvReac Type Severity Reaction Status Date / Time No Known Allergies Allergy Verified 07/26/19 19:56 Home Meds: Home Meds metFORMIN [Glucophage XR] 1,000 mg PO BID 03/31/17 [History] Furosemide [Lasix] 1 tab PO DAILY 07/22/17 [History] Insulin Detemir [Levemir Flextouch] 50 unit INJECT DAILY 05/28/19 [History] Isosorbide Mononitrate [Ismo] 30 mg PO DAILY 05/28/19 [History] Losartan [Cozaar] 50 mg PO DAILY 05/28/19 [History] Metoprolol Succinate [Kapspargo Sprinkle] 25 mg PO DAILY 05/28/19 [History] Pantoprazole Sodium [Protonix] 40 mg PO DAILY 05/28/19 [History] metOLazone [Metolazone] 2.5 mg PO DAILY 05/28/19 [History] traMADol HCl [Tramadol HCl] 50 mg PO Q6HR PRN 05/28/19 [History] Aspirin [Adult Low Dose Aspirin EC] 81 mg PO DAILY 06/26/19 [History] Potassium Chloride [Klor-Con] 20 meq PO DAILY 06/26/19 [History] Sulfamethoxazole/Trimethoprim [Septra DS] 1 tab PO BID 2 Days #4 tablet [Rx] atorvaSTATin [Lipitor] 40 mg PO BEDTIME 06/26/19 [History] Past Medical History - Past Health History Medical/Surgical History: Denies Medical/Surgical History HEENT History: Reports: None Cardiovascular History: Reports: Stents Respiratory History: Reports: None Gastrointestinal History: Reports: None Genitourinary History: Reports: None 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 Musculoskeletal History: Reports: None Neurological History: Reports: None Psychiatric History: Reports: None Endocrine/Metabolic History: Reports: Diabetes, Type II Hematologic History: Reports: None Immunologic History: Reports: None Oncologic (Cancer) History: Reports: None Dermatologic History: Reports: None - Infectious Disease History Infectious Disease History: Reports: Chicken Pox - Past Surgical History Head Surgeries/Procedures: Reports: None HEENT Surgical History: Reports: None Cardiovascular Surgical History: Reports: Coronary Artery Stent Respiratory Surgical History: Reports: None GI Surgical History: Reports: Cholecystectomy Female Surgical History: Reports: Oophorectomy Endocrine Surgical History: Reports: None Neurological Surgical History: Reports: None Musculoskeletal Surgical History: Reports: None Oncologic Surgical History: Reports: None Dermatological Surgical History: Reports: None Social & Family History - Family History Family Medical History: Noncontributory - Tobacco Use Smoking Status *Q: Former Smoker Used Tobacco, but Quit: Yes Month/Year Tobacco Last Used: 1998 - Caffeine Use Caffeine Use: Reports: Coffee, Tea Caffeine Use Comment: 4 cups daily - Recreational Drug Use Recreational Drug Use: No ED ROS GENERAL - Review of Systems Review Of Systems: Comprehensive ROS is negative, except as noted in HPI. ED EXAM, GI/ABD - Physical Exam Exam: See Below (see dictation) Course - Vital Signs Last Recorded V/S: Last Vital Signs Temp 97.7 F 07/26/19 19:57 Pulse 82 07/26/19 19:57 Resp 16 07/26/19 19:57 BP 118/67 07/26/19 19:57 Pulse Ox 94 L 07/26/19 19:57 - Orders/Labs/Meds Orders: Active Orders 24 hr Category Date Time Status CULTURE URINE [RM] Stat Lab 07/26/19 19:48 Received Labs: Laboratory Tests 07/26/19 07/26/19 07/26/19 Range/Units 19:48 20:05 20:05 WBC 8.36 (4.0-11.0) K/uL RBC 4.02 L (4.30-5.90) M/uL Hgb 11.3 L (12.0-16.0) g/dL Hct 34.4 L (36.0-46.0) % MCV 85.6 (80.0-98.0) fL MCH 28.1 (27.0-32.0) pg MCHC 32.8 (31.0-37.0) g/dL RDW Std Deviation 42.1 (28.0-62.0) fl RDW Coeff of Danny 14 (11.0-15.0) % Plt Count 314 (150-400) K/uL MPV 12.00 (7.40-12.00) fL Neut % (Auto) 64.9 (48.0-80.0) % Lymph % (Auto) 26.3 (16.0-40.0) % [place] % (Auto) 5.9 (0.0-15.0) % Eos % (Auto) 2.5 (0.0-7.0) % Baso % (Auto) 0.4 (0.0-1.5) % Neut # (Auto) 5.4 (1.4-5.7) K/uL Lymph # (Auto) 2.2 (0.6-2.4) K/uL [place] # (Auto) 0.5 (0.0-0.8) K/uL Eos # (Auto) 0.2 (0.0-0.7) K/uL Baso # (Auto) 0.0 (0.0-0.1) K/uL Nucleated RBC % 0.0 /100WBC Nucleated RBCs # 0 K/uL Sodium 138 (136-145) mmol/L Potassium 3.5 (3.5-5.1) mmol/L Chloride 99 (98-107) mmol/L Carbon Dioxide 32.3 H (21.0-32.0) mmol/L BUN 16 (7.0-18.0) mg/dL Creatinine 0.8 (0.6-1.0) mg/dL Est Cr Clr Drug Dosing 79.08 mL/min Estimated GFR (MDRD) > 60.0 ml/min Glucose 423 H (74-106) mg/dL Calcium 8.8 (8.5-10.1) mg/dL Total Bilirubin 0.4 (0.2-1.0) mg/dL AST 17 (15-37) IU/L ALT 38 (14-63) IU/L Alkaline Phosphatase 130 H (46-116) U/L Total Protein 7.1 (6.4-8.2) g/dL Albumin 3.2 L (3.4-5.0) g/dL Globulin 3.9 (2.6-4.0) g/dL Albumin/Globulin Ratio 0.8 L (0.9-1.6) Lipase 71 L (73-393) U/L Urine Color YELLOW Urine Appearance SLT CLOUDY Urine pH 6.0 (5.0-8.0) Ur Specific [place] 1.010 (1.001-1.035) Urine Protein NEGATIVE (NEGATIVE) mg/dL Urine Glucose (UA) >=1000 (NEGATIVE) mg/dL Urine Ketones NEGATIVE (NEGATIVE) mg/dL Urine Occult Blood NEGATIVE (NEGATIVE) Urine Nitrite POSITIVE H (NEGATIVE) Urine Bilirubin NEGATIVE (NEGATIVE) Urine Urobilinogen 0.2 (<2.0) EU/dL Ur Leukocyte Esterase NEGATIVE (NEGATIVE) Urine RBC 0-2 (0-2/HPF) Urine WBC 0-3 (0-5/HPF) Ur Epithelial Cells FEW (NONE-FEW) Urine Bacteria 2+ H (NEGATIVE) Meds: Medications Discontinued Medications Generic Name Dose Route Start Last Admin Trade Name Freq PRN Reason Stop Dose Admin Ketorolac Tromethamine 60 mg 07/26/19 20:02 07/26/19 20:20 Toradol IM 07/26/19 20:03 60 mg ONETIME ONE Administration Departure - Departure Time of Disposition: 20:47 Disposition: Home, Self-Care 01 Condition: Good Clinical Impression: UTI (urinary tract infection) - Discharge [facility] - Forms: ED Department Discharge Additional Instructions: The following information is given to patients seen in the emergency department who are being discharged to home. This information is to outline your options for follow-up care. We provide all patients seen in our emergency department with a follow-up referral. The need for follow-up, as well as the timing and circumstances, are variable depending upon the specifics of your emergency department visit. If you don't have a primary care physician on staff, we will provide you with a referral. We always advise you to contact your personal physician following an emergency department visit to inform them of the circumstance of the visit and for follow-up with them and/or the need for any referrals to a consulting specialist. The emergency department will also refer you to a specialist when appropriate. This referral assures that you have the opportunity for follow-up care with a specialist. All of these measure are taken in an effort to provide you with optimal care, which includes your follow-up. Under all circumstances we always encourage you to contact your private physician who remains a resource for coordinating your care. When calling for follow-up care, please make the office aware that this follow-up is from your recent emergency room visit. If for any reason you are refused follow-up, please contact the [facility] Emergency Department at and asked to speak to the emergency department charge nurse. [facility] [address] [place] [address] [facility] [address] [place] [address] Drink plenty of fluids and take antibiotic as directed. Follow up with primary care provider Return to ED as needed as discussed Sepsis Event Note - Evaluation Sepsis Screening Result: No Definite Risk - Focused Exam Vital Signs: Vital Signs Temp Pulse Resp BP Pulse Ox 07/26/19 19:57 97.7 F 82 16 118/67 94 L Date Exam was Performed: 07/26/19 Time Exam was Performed: 20:46 - My Orders Last 24 Hours: My Active Orders 07/26/19 19:48 CULTURE URINE [RM] Stat - Assessment/Plan Last 24 Hours: My Active Orders 07/26/19 19:48 CULTURE URINE [RM] Stat
[2019-07-26 20:42] LABS: BLOOD UREA NITROGEN,BUN 16 mg/dL (7.0-18.0); CARBON DIOXIDE,CO2 32.3 mmol/L (21.0-32.0); CHLORIDE,CL 99 mmol/L (98-107); GLUCOSE RANDOM 423 mg/dL (74-106); LIPASE 71 U/L (73-393); POTASSIUM,K 3.5 mmol/L (3.5-5.1); SODIUM,NA 138 mmol/L (136-145)
[2019-07-26 21:22] VITALS: BP 104/72; PULSE 78
== END 2019-07-26 21:15 | disposition home or self-care (01) ==
LOC: MW.ED 19:18
DX: N39.0 Urinary tract infection, site not specified (principal); E11.9 Type 2 diabetes mellitus without complications; Z79.4 Long term (current) use of insulin; Z79.82 Long term (current) use of aspirin; Z87.891 Personal history of nicotine dependence
CPT/HCPCS: 36415; 80053; 81001; 83690; 85025; 87086; 87088; 87186; 96372; 99284; J1885

== ENCOUNTER 2019-09-15 06:53 | Day surgery (SDC) | payer BC, OTHER ==
[~2019-09-15 06:53] MED LIST: Lactated Ringers 1,000 ML IV SCH; Sodium Chloride 0.9% 10 ML SDV IV PRN; Sodium Chloride 0.9% 10 ML Syringe FLUSH PRN; Sodium Chloride 0.9% 2.5 ML Syringe FLUSH PRN
[2019-09-15] MEDS ORDERED: Propofol 200 MG/20 ML SDV ONE ×2 (07:07→08:40)
[2019-09-15] MEDS ORDERED: fentaNYL 100 MCG/2 ML SDV ONE (07:07)
[2019-09-15] MEDS ORDERED: Lidocaine 2% 5 ML SDV ONE (07:07)
[2019-09-15] MEDS ORDERED: Midazolam 1 MG/ML 2 ML SDV ONE (07:27)
--- NOTE | 2019-09-15 07:49 | PCM.PREANE ---
Preanesthetic Assessment - Anesthesia/Transfusion/Family Hx Anesthesia History: No Prior Anesthesia Family History of Anesthesia Reaction: No Transfusion History: Prior Transfusion Without Reaction Intubation History: Unknown - Review of Systems General: No Symptoms Pulmonary: No Symptoms Cardiovascular: No Symptoms Gastrointestinal: Abdominal Pain, Other (change in bowel habits) Neurological: No Symptoms Other: Reports: None - Physical Assessment Vital Signs: Last Vital Signs Temp 36.3 C 09/15/19 07:32 Pulse 74 09/15/19 07:32 Resp 16 09/15/19 07:32 BP 116/68 09/15/19 07:32 Pulse Ox 96 09/15/19 07:32 Height: 5 ft 6 in Weight: 103.419 kg ASA Class: 3 Mental Status: Alert & Oriented x3 Airway Class: Mallampati = 2 Dentition: Reports: Normal Dentition Thyro-Mental Finger Breadths: 3 Mouth Opening Finger Breadths: 3 ROM/Head Extension: Full Lungs: Clear to Auscultation, Normal Respiratory Effort Cardiovascular: Regular Rate, Regular Rhythm - Allergies Allergies/Adverse Reactions: Allergies Allergy/AdvReac Type Severity Reaction Status Date / Time No Known Allergies Allergy Verified 09/15/19 07:38 - Blood Blood Available: No - Anesthesia Plan Pre-Op Medication Ordered: None - Acknowledgements Anesthesia Type Planned: MAC Pt an Appropriate Candidate for the Planned Anesthesia: Yes Alternatives and Risks of Anesthesia Discussed w Pt/Guardian: Yes Pt/Guardian Understands and Agrees with Anesthesia Plan: Yes PreAnesthesia Questionnaire - Past Health History Medical/Surgical History: Denies Medical/Surgical History HEENT History: Reports: None Cardiovascular History: Reports: High Cholesterol, Hypertension, Stents (LAD '16 ) Respiratory History: Reports: None, Other (See Below) (sleep apnea ruled out) Gastrointestinal History: Reports: GERD Genitourinary History: Reports: None 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 Musculoskeletal History: Reports: None Neurological History: Reports: None Other Neuro History: 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, none since Psychiatric History: Reports: Depression Endocrine/Metabolic History: Reports: Diabetes, Type II (glucose level 77 this morning), Obesity/BMI 30+ (BMI 36.8) Hematologic History: Reports: None Immunologic History: Reports: None Oncologic (Cancer) History: Reports: None Dermatologic History: Reports: None - Infectious Disease History Infectious Disease History: Reports: Chicken Pox - Past Surgical History Head Surgeries/Procedures: Reports: None HEENT Surgical History: Reports: None Cardiovascular Surgical History: Reports: Coronary Artery Stent Other Cardiovascular Surgeries/Procedures: cardiac cath with stent placement Respiratory Surgical History: Reports: None GI Surgical History: Reports: Cholecystectomy, Colonoscopy (6 years ago) Other GI Surgeries/Procedures: janis-en-y gastric bypass Female Surgical History: Reports: Oophorectomy Other Female Surgeries/Procedures: hx laparoscopy with oophorectomy Endocrine Surgical History: Reports: None Neurological Surgical History: Reports: None Musculoskeletal Surgical History: Reports: None Oncologic Surgical History: Reports: None Dermatological Surgical History: Reports: None - SUBSTANCE USE Smoking Status *Q: Former Smoker Tobacco Use Within Last Twelve Months: No - HOME MEDS Home Medications: Home Meds metFORMIN [Glucophage XR] 1,000 mg PO BID 03/31/17 [History] Furosemide [Lasix] 20 mg PO DAILY 07/22/17 [History] Insulin Detemir [Levemir Flextouch] 46 unit INJECT DAILY 05/28/19 [History] Isosorbide Mononitrate [Ismo] 30 mg PO DAILY 05/28/19 [History] Losartan [Cozaar] 50 mg PO DAILY 05/28/19 [History] Metoprolol Succinate [Kapspargo Sprinkle] 25 mg PO DAILY 05/28/19 [History] Pantoprazole Sodium [Protonix] 40 mg PO DAILY 05/28/19 [History] metOLazone [Metolazone] 2.5 mg PO DAILY 05/28/19 [History] traMADol HCl [Tramadol HCl] 50 mg PO Q6HR PRN 05/28/19 [History] Aspirin [Adult Low Dose Aspirin EC] 81 mg PO DAILY 06/26/19 [History] Potassium Chloride [Klor-Con] 20 meq PO DAILY 06/26/19 [History] atorvaSTATin [Lipitor] 40 mg PO BEDTIME 06/26/19 [History] - CURRENT (IN HOUSE) MEDS Current Meds: Current Medications Lactated Ringer's (Ringers, Lactated) 1,000 mls @ 125 mls/hr IV ASDIRECTED BLADE Last Admin: 09/15/19 07:33 Dose: 125 mls/hr Sodium Chloride (Saline Flush) 10 ml FLUSH ASDIRECTED PRN PRN Reason: Keep Vein Open Sodium Chloride (Saline Flush) 2.5 ml FLUSH ASDIRECTED PRN PRN Reason: Keep Vein Open Sodium Chloride (Saline Flush) 10 ml FLUSH ASDIRECTED PRN PRN Reason: Keep Vein Open Sodium Chloride (Saline Flush) 2.5 ml FLUSH ASDIRECTED PRN PRN Reason: Keep Vein Open Sodium Chloride (Normal Saline) 10 ml IV ASDIRECTED PRN PRN Reason: IV Use Discontinued Medications Fentanyl (Sublimaze) Confirm Administered Dose 100 mcg .ROUTE .STK-MED ONE Stop: 09/15/19 07:08 Lidocaine (Xylocaine-Mpf 2%) Confirm Administered Dose 5 ml .ROUTE .STK-MED ONE Stop: 09/15/19 07:08 Midazolam HCl (Versed 1 Mg/Ml) Confirm Administered Dose 2 mg .ROUTE .STK-MED ONE Stop: 09/15/19 07:28 Propofol (Diprivan 20 Ml) Confirm Administered Dose 400 mg .ROUTE .STK-MED ONE Stop: 09/15/19 07:08
--- NOTE | 2019-09-15 09:14 | PCM.OPNOTE ---
- General Post-Op/Procedure Note Date of Surgery/Procedure: 09/15/19 Operative Procedure(s): Diagnostic EGD and colonoscopy Findings: Normal appearing janis-en-y anatomy, cecal polyp Pre Op Diagnosis: LUQ pain, change in bowel habits Post-Op Diagnosis: Cecal polyp, normal gastric bypass anatomy Anesthesia Technique: MAC Primary Surgeon: Lillie Shoemaker Condition: Good
--- NOTE | 2019-09-15 09:22 | PCM.POSTAN ---
POST ANESTHESIA ASSESSMENT - MENTAL STATUS Mental Status: Alert, Oriented - VITAL SIGNS Vital Signs: Last Vital Signs Temp 36.3 C 09/15/19 07:32 Pulse 82 09/15/19 09:16 Resp 12 09/15/19 09:16 BP 118/85 09/15/19 09:16 Pulse Ox 96 09/15/19 09:16 - RESPIRATORY Respiratory Status: Respiratory Rate WNL, Airway Patent, O2 Saturation Stable - CARDIOVASCULAR CV Status: Pulse Rate WNL, Blood Pressure Stable - GASTROINTESTINAL GI Status: No Symptoms - PAIN Pain Score: 0 - POST OP HYDRATION Hydration Status: Adequate & Stable - OBSERVATIONS Free Text/Narrative:: No anesthesia problems
--- NOTE | 2019-09-15 09:54 | PCM48HPAN ---
Post Anesthesia Note - EVALUATION WITHIN 48HRS OF ANESTHETIC Vital Signs in Normal Range: Yes Patient Participated in Evaluation: Yes Respiratory Function Stable: Yes Airway Patent: Yes Cardiovascular Function Stable: Yes Hydration Status Stable: Yes Pain Control Satisfactory: Yes Nausea and Vomiting Control Satisfactory: Yes Mental Status Recovered: Yes Vital Signs: Last Vital Signs Temp 36.3 C 09/15/19 07:32 Pulse 82 09/15/19 09:16 Resp 12 09/15/19 09:16 BP 118/85 09/15/19 09:16 Pulse Ox 96 09/15/19 09:16 - COMMENTS/OBSERVATIONS Free Text/Narrative:: no anesthesia problems
[2019-09-15 11:24] VITALS: BP 117/87; PULSE 89
--- NOTE | 2019-09-15 12:00 | OR ---
SURGEON: LILLIE SHOEMAKER MD DATE OF PROCEDURE: 09/15/2019 PREOPERATIVE DIAGNOSES: Change in bowel habits, left upper quadrant pain. POSTOPERATIVE DIAGNOSES: 1. Normal Isaac-en-Y anatomy. 2. Cecal polyp. PROCEDURES PERFORMED: Diagnostic esophagogastroduodenoscopy and colonoscopy. PRIMARY SURGEON: Lillie Shoemaker MD. ANESTHESIA: MAC. INSTRUMENT USED: Olympus endoscope and colonoscope. EXTENT OF EXAM: To the Isaac limb, to the cecum. PREPARATION: Good. LIMITATIONS: None. INDICATIONS FOR EXAMINATION: The patient is a 54-year-old female who presents with intermittent left upper quadrant and left lower quadrant pain as well as a change in her bowel habits. Preoperative CT scan was normal. The decision was made to proceed with diagnostic EGD and colonoscopy. I explained the procedure; expected perioperative course; and the risks including bleeding, infection, or damage to surrounding structures including perforation. The patient verbalized understanding and wishes to proceed. PROCEDURE IN DETAIL: The patient was brought into the endoscopy suite and placed in the left lateral decubitus position. A time-out was completed verifying the patient's name, age, date of , allergies, and procedure to be performed. A bite block was placed in the patient's mouth. Monitored anesthesia care was induced and continuous oxygen was provided via nasal cannula throughout the procedure. After adequate sedation was achieved, a well-lubricated endoscope was placed in the patient's mouth and advanced under direct visualization to the level of the Isaac-en-Y limb. This appeared normal and a photograph was taken. The scope was fully withdrawn while examining the color, texture, anatomy, and integrity of the mucosa of the upper GI tract. The Isaac limb appeared healthy and there was no evidence of ulceration or inflammation. The gastric-jejunal anastomosis appeared healthy with no evidence of breakdown or ulceration. A photograph of this was taken. A small biopsy was taken along the anastomotic line and sent to Pathology for examination. The rest of the gastric pouch appeared healthy with no evidence of inflammation. The scope was brought into the distal esophagus and a photograph was taken of the Z-line. This appeared normal. A small biopsy was taken of the esophageal mucosa 1 cm above the Z-line and sent to Pathology for histologic review. The remainder of the esophagus appeared normal. The scope was removed and this portion of procedure terminated. A digital rectal exam was performed. This appeared normal. A well-lubricated colonoscope was inserted in the rectum and advanced under direct visualization to the level of the cecum. The cecum was identified by both visual and anatomic landmarks. A photograph was taken of the cecal cap as well as the scope retroflexed within the cecum. The scope was then fully withdrawn while examining the color, texture, anatomy, and integrity of the mucosa from the cecum to the anal canal. The patient was found to have a small sessile polyp within the cecum. This was removed in piecemeal fashion using cold biopsy forceps. It was sent to Pathology, labeled as cecal polyp. The remainder of the colon was normal. The patient's sigmoid colon was slightly redundant, but no other changes were noted. The scope was brought into the rectum and retroflexed to allow visualization of the anal canal opening. This appeared normal and a photograph was taken. Scope was straightened out and fully withdrawn. Cecum to anus time was 13 minutes. The patient tolerated the procedure well and was transferred to the PACU in stable condition. ENDOSCOPIC DIAGNOSES: 1. Normal Isaac-en-Y anatomy. 2. Cecal polyp. RECOMMENDATIONS: Follow up in clinic in 2 weeks. ANGELTIA DELATORRE /[id number]
== END 2019-09-15 09:50 | disposition home or self-care (01) ==
LOC: MW.SDS 06:53
PROVIDERS: ATTEND Surgery
DX: D12.0 Benign neoplasm of cecum (principal); R10.12 Left upper quadrant pain; K21.9 Gastro-esophageal reflux disease without esophagitis; I10 Essential (primary) hypertension; E11.9 Type 2 diabetes mellitus without complications; E78.5 Hyperlipidemia, unspecified; D50.9 Iron deficiency anemia, unspecified; F32.9 Major depressive disorder, single episode, unspecified; E66.9 Obesity, unspecified; Z68.36 Body mass index [BMI] 36.0-36.9, adult; Z79.82 Long term (current) use of aspirin; Z79.4 Long term (current) use of insulin; Z79.899 Other long term (current) drug therapy; Z98.0 Intestinal bypass and anastomosis status; E78.00 Pure hypercholesterolemia, unspecified; Z95.5 Presence of coronary angioplasty implant and graft
CPT/HCPCS: 43239; 45380; J2001; J2250; J2704; J3010; J7120; 00813; 82962

== ENCOUNTER 2020-10-19 14:34 | Emergency (ER) | payer BC, OTHER ==
[2020-10-19] MEDS ORDERED: Acetaminophen/HYDROcodone 325-5 MG Tab PO ONE (15:07)
--- NOTE | 2020-10-19 15:15 | EDM.PDOC ---
ED HPI GENERAL MEDICAL PROBLEM - General Chief Complaint: Upper Extremity Injury/Pain Stated Complaint: RIGHT HAND NUMBNESS Time Seen by Provider: 10/19/20 14:40 Source of Information: Reports: Patient History Limitations: Reports: No Limitations - History of Present Illness INITIAL COMMENTS - FREE TEXT/NARRATIVE: Patient is a 55-year-old female who presents today for left hand pain. Patient that she has some tendinitis and gets injections into both hands and had injection a few days ago. Patient brain is fine but states left hand has pain to the center where the injection was placed in some redness as well. Patient states that she can wiggle her fingers but has pain when trying to close her fist. Patient with redness spreading today and is concerned about infection. Patient has any fever chills nausea vomiting or other complaints. left hand Pain Score (Numeric/FACES): 7 - Related Data Allergies Allergy/AdvReac Type Severity Reaction Status Date / Time No Known Allergies Allergy Verified 10/19/20 14:51 Home Meds: Home Meds metFORMIN [Glucophage XR] 1,000 mg PO BID 03/31/17 [History] Furosemide [Lasix] 20 mg PO DAILY 07/22/17 [History] Insulin Detemir [Levemir Flextouch] 46 unit INJECT DAILY 05/28/19 [History] Isosorbide Mononitrate [Ismo] 30 mg PO DAILY 05/28/19 [History] Losartan [Cozaar] 50 mg PO DAILY 05/28/19 [History] Metoprolol Succinate [Kapspargo Sprinkle] 25 mg PO DAILY 05/28/19 [History] Pantoprazole Sodium [Protonix] 40 mg PO DAILY 05/28/19 [History] metOLazone [Metolazone] 2.5 mg PO DAILY 05/28/19 [History] traMADol HCl [Tramadol HCl] 50 mg PO Q6HR PRN 05/28/19 [History] Aspirin [Adult Low Dose Aspirin EC] 81 mg PO DAILY 06/26/19 [History] Potassium Chloride [Klor-Con] 20 meq PO DAILY 06/26/19 [History] atorvaSTATin [Lipitor] 40 mg PO BEDTIME 06/26/19 [History] cephALEXin [Keflex] 500 mg PO Q6HR 5 Days #20 cap 10/19/20 [Rx] Past Medical History - Past Health History Medical/Surgical History: Denies Medical/Surgical History HEENT History: Reports: None Cardiovascular History: Reports: High Cholesterol, Hypertension, Stents Respiratory History: Reports: None, Other (See Below) Gastrointestinal History: Reports: None Genitourinary History: Reports: None 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: Musculoskeletal History: Reports: None Neurological History: Reports: None Other Neuro History: 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, none since Psychiatric History: Reports: Depression Endocrine/Metabolic History: Reports: Diabetes, Type II Hematologic History: Reports: None Immunologic History: Reports: None Oncologic (Cancer) History: Reports: None Dermatologic History: Reports: None - Infectious Disease History Infectious Disease History: Reports: Chicken Pox - Past Surgical History Head Surgeries/Procedures: Reports: None HEENT Surgical History: Reports: None Cardiovascular Surgical History: Reports: Coronary Artery Stent Other Cardiovascular Surgeries/Procedures: cardiac cath with stent placement Respiratory Surgical History: Reports: None GI Surgical History: Reports: Cholecystectomy, Colonoscopy Other GI Surgeries/Procedures: janis-en-y gastric bypass Female Surgical History: Reports: Oophorectomy Other Female Surgeries/Procedures: hx laparoscopy with oophorectomy Endocrine Surgical History: Reports: None Neurological Surgical History: Reports: None Musculoskeletal Surgical History: Reports: None Oncologic Surgical History: Reports: None Dermatological Surgical History: Reports: None Social & Family History - Family History Family Medical History: No Pertinent Family History - Caffeine Use Caffeine Use: Reports: Coffee Caffeine Use Comment: 4 cups daily - Recreational Drug Use Recreational Drug Use: No Review of Systems - Review of Systems Review Of Systems: See Below Constitutional: Reports: No Symptoms Eyes: Reports: No Symptoms Ears: Reports: No Symptoms Nose: Reports: No Symptoms Mouth/Throat: Reports: No Symptoms Respiratory: Reports: No Symptoms Cardiovascular: Reports: No Symptoms GI/Abdominal: Reports: No Symptoms Genitourinary: Reports: No Symptoms Musculoskeletal: Reports: Hand Pain Skin: Reports: No Symptoms Neurological: Reports: No Symptoms Psychiatric: Reports: No Symptoms ED EXAM, GENERAL - Physical Exam Exam: See Below Exam Limited By: No Limitations General Appearance: Alert, WD/WN Respiratory/Chest: No Respiratory Distress, Lungs Clear Cardiovascular: Normal Peripheral Pulses, Regular Rate, Rhythm Peripheral Pulses: 2+: Radial (L), Radial (R) GI/Abdominal: Normal Bowel Sounds, Soft, Non-Tender Extremities: Normal Inspection, Joint Swelling (swelling and redness to center of hand), Limited Range of Motion (because of pain) Neurological: Alert, Oriented, Normal Cognition, Normal Gait Course - Vital Signs Last Recorded V/S: Last Vital Signs Temp 98.4 F 10/19/20 14:41 Pulse 87 10/19/20 14:41 Resp 16 10/19/20 14:41 BP 130/67 10/19/20 14:41 Pulse Ox 96 10/19/20 14:41 - Orders/Labs/Meds Labs: Laboratory Tests 10/19/20 10/19/20 Range/Units 15:34 15:34 WBC 13.91 H (4.0-11.0) K/uL RBC 3.67 L (4.30-5.90) M/uL Hgb 10.5 L (12.0-16.0) g/dL Hct 32.2 L (36.0-46.0) % MCV 87.7 (80.0-98.0) fL MCH 28.6 (27.0-32.0) pg MCHC 32.6 (31.0-37.0) g/dL RDW Std Deviation 42.6 (28.0-62.0) fl RDW Coeff of Danny 13 (11.0-15.0) % Plt Count 270 (150-400) K/uL MPV 12.00 (7.40-12.00) fL Neut % (Auto) 78.0 (48.0-80.0) % Lymph % (Auto) 14.4 L (16.0-40.0) % [place] % (Auto) 6.5 (0.0-15.0) % Eos % (Auto) 0.9 (0.0-7.0) % Baso % (Auto) 0.2 (0.0-1.5) % Neut # (Auto) 10.8 H (1.4-5.7) K/uL Lymph # (Auto) 2.0 (0.6-2.4) K/uL [place] # (Auto) 0.9 H (0.0-0.8) K/uL Eos # (Auto) 0.1 (0.0-0.7) K/uL Baso # (Auto) 0.0 (0.0-0.1) K/uL Nucleated RBC % 0.0 /100WBC Nucleated RBCs # 0 K/uL Sodium 138 (136-145) mmol/L Potassium 3.6 (3.5-5.1) mmol/L Chloride 104 (98-107) mmol/L Carbon Dioxide 28.0 (21.0-32.0) mmol/L BUN 11 (7.0-18.0) mg/dL Creatinine 0.6 (0.6-1.0) mg/dL Est Cr Clr Drug Dosing 100.34 mL/min Estimated GFR (MDRD) > 60.0 ml/min Glucose 224 H (74-106) mg/dL Calcium 7.9 L (8.5-10.1) mg/dL Total Bilirubin 0.4 (0.2-1.0) mg/dL AST 29 (15-37) IU/L ALT 53 (14-63) IU/L Alkaline Phosphatase 142 H (46-116) U/L Creatine Kinase 32 (26-308) U/L Total Protein 6.4 (6.4-8.2) g/dL Albumin 2.9 L (3.4-5.0) g/dL Globulin 3.5 (2.6-4.0) g/dL Albumin/Globulin Ratio 0.8 L (0.9-1.6) Meds: Medications Discontinued Medications Generic Name Dose Route Start Last Admin Trade Name Freq PRN Reason Stop Dose Admin Hydrocodone Bitart/Acetaminophen 1 tab 10/19/20 15:07 10/19/20 15:20 Acetaminophen/Hydrocodone 325-5 Mg Tab PO 10/19/20 15:08 1 tab ONETIME ONE Administration Departure - Departure Time of Disposition: 16:55 Disposition: Home, Self-Care 01 Condition: Good Clinical Impression: Cellulitis of hand - Discharge Information *PRESCRIPTION DRUG MONITORING PROGRAM REVIEWED*: Not Applicable *COPY OF PRESCRIPTION DRUG MONITORING REPORT IN PATIENT PRAMOD: Not Applicable Prescriptions: cephALEXin [Keflex] 500 mg PO Q6HR 5 Days #20 cap Instructions: Cellulitis, Adult Referrals: PCP,None [Ordering Only Provider] - Forms: ED Department Discharge Additional Instructions: The following information is given to patients seen in the emergency department who are being discharged to home. This information is to outline your options for follow-up care. We provide all patients seen in our emergency department with a follow-up referral. The need for follow-up, as well as the timing and circumstances, are variable depending upon the specifics of your emergency department visit. If you don't have a primary care physician on staff, we will provide you with a referral. We always advise you to contact your personal physician following an emergency department visit to inform them of the circumstance of the visit and for follow-up with them and/or the need for any referrals to a consulting specialist. The emergency department will also refer you to a specialist when appropriate. This referral assures that you have the opportunity for follow-up care with a specialist. All of these measure are taken in an effort to provide you with optimal care, which includes your follow-up. Under all circumstances we always encourage you to contact your private physician who remains a resource for coordinating your care. When calling for follow-up care, please make the office aware that this follow-up is from your recent emergency room visit. If for any reason you are refused follow-up, please contact the [facility] Emergency Department at and asked to speak to the emergency department charge nurse. Please follow up with your primary care physician. If you do not have a primary care physician, see below: [facility] [address] [place] [id number] [facility] [address] [place] [id number] Follow-up with the physician there gave you the injections into your hand. Also if the redness or swelling hand becomes worse please return back to the ED. If you have any other concerns concerns please give us a call back. Sepsis Event Note (ED) - Evaluation Sepsis Screening Result: No Definite Risk - Focused Exam Vital Signs: Vital Signs Temp Pulse Resp BP Pulse Ox 10/19/20 14:41 98.4 F 87 16 130/67 96 - Assessment/Plan Plan: Is a 55-year-old female presents today for left hand pain. Patient had a recent seems like cortisone injection to the hand for tendinopathy. Patient will have labs pain control and x-ray and reassess.
--- NOTE | 2020-10-19 16:08 | CR ---
Indication: Pain in center of hand with redness, had cortisone shot on Saturday. Technique: Right hand 2 views. Comparison: None. Findings: No acute fracture or dislocation. Mild degenerative changes of the interphalangeal joints. Vascular calcifications in the wrist. Soft tissues are otherwise unremarkable. No soft tissue gas or radiopaque foreign body identified. Impression: 1. No acute findings. 2. No radiographic soft tissue abnormality identified. Dictated by Modesta Fairchild MD @ Oct 19 2020 4:04PM Signed by Dr. Modesta Fairchild @ Oct 19 2020 4:06PM
[2020-10-19 16:15] LABS: BLOOD UREA NITROGEN,BUN 11 mg/dL (7.0-18.0); CHLORIDE,CL 104 mmol/L (98-107); GLUCOSE RANDOM 224 mg/dL (74-106); POTASSIUM,K 3.6 mmol/L (3.5-5.1); SODIUM,NA 138 mmol/L (136-145)
[2020-10-19 17:35] VITALS: BP 141/78; PULSE 80
== END 2020-10-19 17:35 | disposition home or self-care (01) ==
LOC: MW.ED 14:34
DX: L03.114 Cellulitis of left upper limb (principal); E78.00 Pure hypercholesterolemia, unspecified; I10 Essential (primary) hypertension; E11.9 Type 2 diabetes mellitus without complications; Z79.4 Long term (current) use of insulin; Z79.82 Long term (current) use of aspirin; Z79.899 Other long term (current) drug therapy
CPT/HCPCS: 36415; 73120; 80053; 82550; 85025; 99283; A9270

== ENCOUNTER 2020-10-20 23:48 | Emergency (ER) | payer BC, OTHER ==
[2020-10-21] MEDS ORDERED: Sodium Chloride 0.9% 2.5 ML Syringe FLUSH PRN (00:29)
[2020-10-21] MEDS ORDERED: Sodium Chloride 0.9% 10 ML Syringe FLUSH PRN (00:29)
--- NOTE | 2020-10-21 00:34 | EDM.PDOC ---
ED HPI GENERAL MEDICAL PROBLEM - General Chief Complaint: Upper Extremity Injury/Pain Stated Complaint: SWELLING IN HAND Time Seen by Provider: 10/21/20 00:07 - History of Present Illness INITIAL COMMENTS - FREE TEXT/NARRATIVE: History of present illness: [] Patient has tendinitis and gets injection of steroids into her hands. She got injection into the volar fat pad at the MPJs of her hands 3 days ago. Yesterday on the she came in to have reevaluation because while the right hand got better the left hand got swollen and worse. My partner felt she had cellulitis in the hand and put her on cephalexin. She has had 3 doses. The hand is more swollen has painful range of motion. The patient has severe pain in the hand and limited range of motion. The pain goes up to the elbow on the volar forearm. Review of systems: As per history of present illness and below otherwise all systems reviewed and negative. Past medical history: As per history of present illness and as reviewed below otherwise noncontributor y. Surgical history: As per history of present illness and as reviewed below otherwise noncontributory. Social history: No reported history of drug or alcohol abuse. Family history: As per history of present illness and as reviewed below otherwise noncontributory. Physical exam: Constitutional - well developed, well-nourished and in no acute distress HEENT - normocephalic, no evidence of trauma - external nose and mouth normal - no mass in neck and no JVD - mucosae moist EYES - full EOM, PERRL, no icterus - no evidence of inflammation, injection, or drainage Respiratory - no respiratory distress, equal bilateral expansion Musculoskeletal redness tenderness and pain in the volar palm of the left hand especially over the distal metacarpals. Very limited range of motion at the MPJs because of the severe pain it causes. Extremely tender in the volar palm. No gross deformity of long bones or joints - no tenderness, swelling or edema Neurologic - Alert and oriented times four - CN II-XII grossly intact - motor sensory and coordination symmetrically normal Psychiatric - appropriate mood and affect with normal thought content Hematologic - No petechiae or purpura - mucosa appropriate color and sclera not pale - normal nail bed color and refill Integument -redness and warmth in the volar hand of the left. Otherwise no rash or evidence of trauma - normal turgor Diagnostics: [] Therapeutics: [] Impression: [] Plan: [] Definitive disposition and diagnosis as appropriate pending reevaluation and review of above. L hand Pain Score (Numeric/FACES): 8 - Related Data Allergies Allergy/AdvReac Type Severity Reaction Status Date / Time No Known Allergies Allergy Verified 10/20/20 23:54 Home Meds: Home Meds metFORMIN [Glucophage XR] 1,000 mg PO BID 03/31/17 [History] Furosemide [Lasix] 20 mg PO DAILY 07/22/17 [History] Insulin Detemir [Levemir Flextouch] 46 unit INJECT DAILY 05/28/19 [History] Isosorbide Mononitrate [Ismo] 30 mg PO DAILY 05/28/19 [History] Losartan [Cozaar] 50 mg PO DAILY 05/28/19 [History] Metoprolol Succinate [Kapspargo Sprinkle] 25 mg PO DAILY 05/28/19 [History] Pantoprazole Sodium [Protonix] 40 mg PO DAILY 05/28/19 [History] metOLazone [Metolazone] 2.5 mg PO DAILY 05/28/19 [History] traMADol HCl [Tramadol HCl] 50 mg PO Q6HR PRN 05/28/19 [History] Aspirin [Adult Low Dose Aspirin EC] 81 mg PO DAILY 06/26/19 [History] Potassium Chloride [Klor-Con] 20 meq PO DAILY 06/26/19 [History] atorvaSTATin [Lipitor] 40 mg PO BEDTIME 06/26/19 [History] cephALEXin [Keflex] 500 mg PO Q6HR 5 Days #20 cap 10/19/20 [Rx] Doxycycline [Vibramycin] 100 mg PO BID #20 tab 10/21/20 [Rx] Past Medical History - Past Health History Medical/Surgical History: Denies Medical/Surgical History HEENT History: Reports: None Cardiovascular History: Reports: High Cholesterol, Hypertension, Stents Respiratory History: Reports: None, Other (See Below) Gastrointestinal History: Reports: None Genitourinary History: Reports: None 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 History: Reports: None Neurological History: Reports: None Other Neuro History: 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, none since Psychiatric History: Reports: Depression Endocrine/Metabolic History: Reports: Diabetes, Type II Hematologic History: Reports: None Immunologic History: Reports: None Oncologic (Cancer) History: Reports: None Dermatologic History: Reports: None - Infectious Disease History Infectious Disease History: Reports: Chicken Pox - Past Surgical History Head Surgeries/Procedures: Reports: None HEENT Surgical History: Reports: None Cardiovascular Surgical History: Reports: Coronary Artery Stent Other Cardiovascular Surgeries/Procedures: cardiac cath with stent placement Respiratory Surgical History: Reports: None GI Surgical History: Reports: Cholecystectomy, Colonoscopy Other GI Surgeries/Procedures: janis-en-y gastric bypass Female Surgical History: Reports: Oophorectomy Other Female Surgeries/Procedures: hx laparoscopy with oophorectomy Endocrine Surgical History: Reports: None Neurological Surgical History: Reports: None Musculoskeletal Surgical History: Reports: None Oncologic Surgical History: Reports: None Dermatological Surgical History: Reports: None Social & Family History - Family History Family Medical History: No Pertinent Family History - Caffeine Use Caffeine Use: Reports: Coffee, Tea Caffeine Use Comment: 4 cups daily - Recreational Drug Use Recreational Drug Use: No ED ROS GENERAL - Review of Systems Review Of Systems: Comprehensive ROS is negative, except as noted in HPI. ED EXAM, GENERAL - Physical Exam Exam: See Below Free Text/Narrative:: My physical exam is in the HPI Course - Vital Signs Text/Narrative:: While it looks like she might need exploration of her tendon space by hand doctor as she is getting antibiotics she appears to be slightly improved. She wants very much to try more aggressive antibiotic care and avoid having to be transferred to [place] for a hand doctor. I told her that I think it would be safe to give a dose of good coverage with a couple of antibiotics and then reevaluate in the morning to see if she needs to go by private car up to see hand surgeon. Last Recorded V/S: Last Vital Signs Temp 36.1 C 10/20/20 23:55 Pulse 76 10/21/20 03:25 Resp 18 10/21/20 03:25 BP 144/74 H 10/21/20 03:25 Pulse Ox 96 10/21/20 03:25 - Orders/Labs/Meds Orders: Active Orders 24 hr Category Date Time Status CULTURE BLOOD [BC] Stat Lab 10/21/20 00:47 Received CULTURE BLOOD [BC] Stat Lab 10/21/20 00:54 Received Sodium Chloride 0.9% [Saline Flush] Med 10/21/20 00:29 Active 10 ml FLUSH ASDIRECTED PRN Sodium Chloride 0.9% [Saline Flush] Med 10/21/20 00:29 Active 2.5 ml FLUSH ASDIRECTED PRN Blood Culture x2 Reflex Set [OM.PC] Stat Oth 10/21/20 00:34 Ordered Saline Lock Insert [OM.PC] Stat Ot 10/21/20 00:29 Ordered Medication Orders Sodium Chloride (Sodium Chloride 0.9% 10 Ml Syringe) 10 ml FLUSH ASDIRECTED PRN PRN Reason: Keep Vein Open Last Admin: 10/21/20 01:08 Dose: 10 ml Documented by: LEONIDES Sodium Chloride (Sodium Chloride 0.9% 2.5 Ml Syringe) 2.5 ml FLUSH ASDIRECTED PRN PRN Reason: Keep Vein Open Last Admin: 10/21/20 01:08 Dose: 2.5 ml Documented by: LEONIDES Labs: Laboratory Tests 10/21/20 10/21/20 10/21/20 Range/Units 00:47 00:47 00:47 WBC 12.06 H (4.0-11.0) K/uL RBC 3.68 L (4.30-5.90) M/uL Hgb 10.3 L (12.0-16.0) g/dL Hct 32.3 L (36.0-46.0) % MCV 87.8 (80.0-98.0) fL MCH 28.0 (27.0-32.0) pg MCHC 31.9 (31.0-37.0) g/dL RDW Std Deviation 39.9 (28.0-62.0) fl RDW Coeff of Danny 13 (11.0-15.0) % Plt Count 250 (150-400) K/uL MPV 12.10 H (7.40-12.00) fL Neut % (Auto) 72.7 (48.0-80.0) % Lymph % (Auto) 18.7 (16.0-40.0) % [place] % (Auto) 6.5 (0.0-15.0) % Eos % (Auto) 1.9 (0.0-7.0) % Baso % (Auto) 0.2 (0.0-1.5) % Neut # (Auto) 8.8 H (1.4-5.7) K/uL Lymph # (Auto) 2.3 (0.6-2.4) K/uL [place] # (Auto) 0.8 (0.0-0.8) K/uL Eos # (Auto) 0.2 (0.0-0.7) K/uL Baso # (Auto) 0.0 (0.0-0.1) K/uL ESR 35 H (0-29) mm/hr Sodium 141 (136-145) mmol/L Potassium 3.7 (3.5-5.1) mmol/L Chloride 104 (98-107) mmol/L Carbon Dioxide 29.3 (21.0-32.0) mmol/L BUN 12 (7.0-18.0) mg/dL Creatinine 0.4 L (0.6-1.0) mg/dL Est Cr Clr Drug Dosing 150.51 mL/min Estimated GFR (MDRD) > 60.0 ml/min Glucose 117 H (74-106) mg/dL Calcium 8.4 L (8.5-10.1) mg/dL C-Reactive Protein 1.80 H (0.00-0.90) mg/dL Meds: Medications Generic Name Dose Route Start Last Admin Trade Name Freq PRN Reason Stop Dose Admin Sodium Chloride 10 ml 10/21/20 00:29 10/21/20 01:08 Sodium Chloride 0.9% 10 Ml Syringe FLUSH 10 ml ASDIRECTED PRN Administration Keep Vein Open Sodium Chloride 2.5 ml 10/21/20 00:29 10/21/20 01:08 Sodium Chloride 0.9% 2.5 Ml Syringe FLUSH 2.5 ml ASDIRECTED PRN Administration Keep Vein Open Discontinued Medications Generic Name Dose Route Start Last Admin Trade Name Freq PRN Reason Stop Dose Admin Vancomycin HCl 1 gm/ Sodium 250 mls @ 166 mls/hr 10/21/20 00:34 10/21/20 01:08 Chloride IV 10/21/20 02:04 166 mls/hr ONETIME ONE Administration Cefazolin Sodium/Dextrose 1 gm 50 mls @ 100 mls/hr 10/21/20 00:35 10/21/20 01:07 / Premix IV 10/21/20 01:04 100 mls/hr ONETIME ONE Administration Morphine Sulfate 4 mg 10/21/20 01:15 10/21/20 01:20 Morphine 4 Mg/Ml Syringe IVPUSH 10/21/20 01:16 4 mg ONETIME ONE Administration Ondansetron HCl 4 mg 10/21/20 01:15 10/21/20 01:19 Ondansetron 4 Mg/2 Ml Sdv IVPUSH 10/21/20 01:16 4 mg ONETIME ONE Administration Departure - Departure Time of Disposition: 03:32 Disposition: Home, Self-Care 01 Condition: Good Clinical Impression: Infection of hand, Cellulitis of hand - Discharge Information Prescriptions: Doxycycline [Vibramycin] 100 mg PO BID #20 tab Instructions: Tendinitis, [id number] [facility] - Forms: ED Department Discharge Additional Instructions: I can send you to [facility] now and they can have a hand doctor see you or if you are not improving rapidly later today they have hand doctors assistant director of admissions and you can have someone take you to [facility]. The following information is given to patients seen in the emergency department who are being discharged to home. This information is to outline your options for follow-up care. We provide all patients seen in our emergency department with a follow-up referral. The need for follow-up, as well as the timing and circumstances, are variable depending upon the specifics of your emergency department visit. If you don't have a primary care physician on staff, we will provide you with a referral. We always advise you to contact your personal physician following an emergency department visit to inform them of the circumstance of the visit and for follow-up with them and/or the need for any referrals to a consulting specialist. The emergency department will also refer you to a specialist when appropriate. This referral assures that you have the opportunity for follow-up care with a specialist. All of these measure are taken in an effort to provide you with optimal care, which includes your follow-up. Under all circumstances we always encourage you to contact your private physician who remains a resource for coordinating your care. When calling for follow-up care, please make the office aware that this follow-up is from your recent emergency room visit. If for any reason you are refused follow-up, please contact the [facility] Emergency Department at and asked to speak to the emergency department charge nurse. Sepsis Event Note (ED) - Evaluation Sepsis Screening Result: No Definite Risk - Focused Exam Vital Signs: Vital Signs Temp Pulse Resp BP Pulse Ox 10/21/20 03:25 76 18 144/74 H 96 10/20/20 23:55 36.1 C 77 18 158/81 H 98 - My Orders Last 24 Hours: My Active Orders 10/21/20 00:29 Sodium Chloride 0.9% [Saline Flush] 10 ml FLUSH ASDIRECTED PRN Sodium Chloride 0.9% [Saline Flush] 2.5 ml FLUSH ASDIRECTED PRN Saline Lock Insert [OM.PC] Stat 10/21/20 00:34 Blood Culture x2 Reflex Set [OM.PC] Stat 10/21/20 00:47 CULTURE BLOOD [BC] Stat 10/21/20 00:54 CULTURE BLOOD [BC] Stat - Assessment/Plan Last 24 Hours: My Active Orders 10/21/20 00:29 Sodium Chloride 0.9% [Saline Flush] 10 ml FLUSH ASDIRECTED PRN Sodium Chloride 0.9% [Saline Flush] 2.5 ml FLUSH ASDIRECTED PRN Saline Lock Insert [OM.PC] Stat 10/21/20 00:34 Blood Culture x2 Reflex Set [OM.PC] Stat 10/21/20 00:47 CULTURE BLOOD [BC] Stat 10/21/20 00:54 CULTURE BLOOD [BC] Stat
[2020-10-21] MEDS ORDERED: ceFAZolin 1 GM in Premix Bag 1 BAG IV ONE (00:35)
[2020-10-21 01:13] LABS: BLOOD UREA NITROGEN,BUN 12 mg/dL (7.0-18.0); CARBON DIOXIDE,CO2 29.3 mmol/L (21.0-32.0); CHLORIDE,CL 104 mmol/L (98-107); GLUCOSE RANDOM 117 mg/dL (74-106); POTASSIUM,K 3.7 mmol/L (3.5-5.1); SODIUM,NA 141 mmol/L (136-145)
[2020-10-21] MEDS ORDERED: Ondansetron 4 MG/2 ML SDV IVPUSH ONE (01:15)
[2020-10-21] MEDS ORDERED: Morphine 4 MG/ML Syringe IVPUSH ONE (01:15)
[2020-10-21 03:25] VITALS: BP 144/74; PULSE 76
== END 2020-10-21 03:41 | disposition home or self-care (01) ==
LOC: MW.ED 23:48
DX: L03.114 Cellulitis of left upper limb (principal); E78.00 Pure hypercholesterolemia, unspecified; I10 Essential (primary) hypertension; E11.9 Type 2 diabetes mellitus without complications; Z79.4 Long term (current) use of insulin; Z79.82 Long term (current) use of aspirin; Z79.899 Other long term (current) drug therapy
CPT/HCPCS: 36415; 80048; 85025; 85652; 86140; 87040; 96365; 96366; 96367; 96375; 99283; J0690; J2270; J2405; J3370; J7050; 99282

== ENCOUNTER 2020-11-24 12:17 | Emergency (ER) | payer BC, OTHER ==
--- NOTE | 2020-11-24 12:25 | EDM.PDOC ---
ED HPI GENERAL MEDICAL PROBLEM - General Chief Complaint: Neurological Problem Stated Complaint: DIZZY AND DIAREAH Time Seen by Provider: 11/24/20 12:24 Source of Information: Reports: Patient History Limitations: Reports: No Limitations - History of Present Illness INITIAL COMMENTS - FREE TEXT/NARRATIVE: HISTORY AND PHYSICAL: History of present illness: The patient is a 55-year-old female with a history of gastric bypass, type 2 diabetes, cardiac stent placement, 2-1/2 years postmenopausal, who presents to the emergency department with complaints of dizziness/lightheaded for 3 days, nausea (last night), and diarrhea since last night. She reports that she had 6 episodes of liquid stools yesterday. She reports that she was at work last night and took her blood pressure which was 90/60 and she was having dizziness at that time. She was supposed to work until 8:00 this morning, but had to leave at 05:30. She also checked her blood glucose which was 240 after eating pretzels. She states breast makes her dizziness better. Bending or standing makes the dizziness worse. She describes the dizziness as lightheadedness and not the room spinning. She denies dysuria but is having frequency. She states she had had this happen before 2 years ago due to a low iron level, which was treated with iron infusions. She states that she has been trying to diet and about a month ago joined a nutrition group. She rarely checks her blood glucose but did check it yesterday in the morning it is 122. She reports that she used to get edema in her feet and ankles but has since been on a diuretic. She has not seen her primary care in a while and when she does she is seeing someone at the [facility]. She reports that she started a new diet about a month ago which includes vegetable and occasional bread intake. She eats very little meat. Patient denies any fever, chills, headache, change in vision, syncope or near syncope. Denies any chest pain, back pain, shortness of breath or cough. Denies any abdominal pain, or constipation. Has not noted any blood in urine or stool. Patient has been eating and drinking appropriately. Review of systems: As per history of present illness and below otherwise all systems reviewed and negative. Past medical history: As per history of present illness and as reviewed below otherwise noncontributory. Surgical history: As per history of present illness and as reviewed below otherwise noncontributory. Social history: See social history for further information Family history: As per history of present illness and as reviewed below otherwise noncontributory. Physical exam: General: Well developed and well nourished. Alert and orientated x 3. Nontoxic in appearance and in no acute distress. Vital signs are stable and have been reviewed by me. Nursing notes were reviewed. HEENT: Atraumatic, normocephalic, pupils equal and reactive bilaterally, negative for conjunctival pallor or scleral icterus, mucous membranes moist, TMs normal bilaterally, throat clear, neck supple, nontender, trachea midline. No drooling or trismus noted. No meningeal signs. No hot potato voice noted. Lungs: Clear to auscultation bilaterally. No wheezes, rales, or rhonchi. Chest nontender. Normal work of breathing, no accessory muscles used. Heart: S1S2, regular rate and rhythm without overt murmur, gallops, or rubs. No JVD. No peripheral edema Abdomen: Soft, nondistended, nontender. Normoactive bowel sounds. Negative for masses or costovertebral tenderness. Skin: Intact, warm, dry. No lesions or rashes noted. Hematologic: No petechiae or purpra. Mucosa appropriate color and normal nail bed color and refill. Extremities: Atraumatic, moves all extremities per self without difficulty or deficits, negative for cords or calf pain. Neurovascular unremarkable. Neuro: Awake, alert, oriented. Cranial nerves II through XII unremarkable. Cerebellum unremarkable. Motor and sensory unremarkable throughout. Exam nonf ocal. Psychiatric: Mood and affect are appropriate. Normal thought process. Answering questions appropriately. Notes: *This patient was seen and evaluated during the 2019 SARS-CoV-2 novel coronaviru s pandemic period. Community viral transmission is ongoing at time of this encounter and the emergency department is operating under pandemic response procedures. After discussion and exam the patient is agreeable to lab work, chest x-ray, heat CT, EKG and IV fluids. Dr. Berumen the EKG as NSR. (13:47) CXR IMPRESSION: Negative chest per radiologist. Head CT impression: Unremarkable noncontrast h ead CT per radiologist. (14:13) Hgb 11.1, NA+ 144, K+ 3.8, glucose 122, calcium 8.4, alkaline phosphatase 136, Troponin < 0.05. The patient denies alcohol intake and states she does have occasional grilled chicken on her salads. Advised patient to speak with a adult literacy teacher regarding weight loss and the correct diet for her diabetes. (14:31) The patient's Covid is negative. She is denying dizziness at this time. I will discharge her with instruction to consult with a dietitian regarding her diet. I have talked with the patient about today's findings, in addition to providing specific details for plan of care. Reassessment at the time of disposition demonstrates that the patient is in no acute distress. The patient is stable for discharge, counseling was provided and we discussed in great detail signs and symptoms that would prompt them to return to the Emergency Department. Medication, follow up and supportive care measures were reviewed and discussed. Voices understanding and is agreeable to plan of care. Denies any further questions or concerns at this time. Diagnostics:CBC, CMP, Troponin, CXR, Head CT, EKG, UA Therapeutics:500 ml IV bolus Impression: Dizziness Plan: 1. You were evaluated today on an emergent basis. Your complaints of dizziness were evaluated with blood work, at head CT, EKG, and chest x-ray. Your blood work suggests the need for more protein in you diet. You started on a diet a month ago. You need to consult with a adult literacy teacher regarding your diet for weight loss. Get rest and plenty of fluids. Your EKG, head CT and chest x-ray were negative. I wrote a note to be off of work until Saturday. Please return if there are any problems. 2. You can alternate Tylenol DO NOT EXCEED 4,000MG PER DAY and ibuprofen as needed for pain and fever management. 3. We encourage you to follow up with your primary care provider and/or recommended specialist in the next few days for re-evaluation and further care/management. 4. If your symptoms should worsen, new symptoms develop or any of the signs and symptoms we discussed should arise please return to the emergency room or call 911 (if needed). Definitive disposition and diagnosis as appropriate pending reevaluation and review of above. - Related Data Allergies Allergy/AdvReac Type Severity Reaction Status Date / Time No Known Allergies Allergy Verified 11/24/20 12:39 Home Meds: Home Meds metFORMIN [Glucophage XR] 1,000 mg PO BID 03/31/17 [History] Furosemide [Lasix] 20 mg PO DAILY 07/22/17 [History] Insulin Detemir [Levemir Flextouch] 46 unit INJECT DAILY 05/28/19 [History] Isosorbide Mononitrate [Ismo] 30 mg PO DAILY 05/28/19 [History] Losartan [Cozaar] 50 mg PO DAILY 05/28/19 [History] Metoprolol Succinate [Kapspargo Sprinkle] 25 mg PO DAILY 05/28/19 [History] Pantoprazole Sodium [Protonix] 40 mg PO DAILY 05/28/19 [History] metOLazone [Metolazone] 2.5 mg PO DAILY 05/28/19 [History] traMADol HCl [Tramadol HCl] 50 mg PO Q6HR PRN 05/28/19 [History] Aspirin [Adult Low Dose Aspirin EC] 81 mg PO DAILY 06/26/19 [History] Potassium Chloride [Klor-Con] 20 meq PO DAILY 06/26/19 [History] atorvaSTATin [Lipitor] 40 mg PO BEDTIME 06/26/19 [History] Doxycycline [Vibramycin] 100 mg PO BID #20 tab 10/21/20 [Rx] Past Medical History - Past Health History Medical/Surgical History: Denies Medical/Surgical History HEENT History: Reports: None Cardiovascular History: Reports: High Cholesterol, Hypertension, Stents Respiratory History: Reports: None, Other (See Below) Gastrointestinal History: Reports: None Genitourinary History: Reports: None SAP BI ARCHITECT History: Reports: Musculoskeletal History: Reports: None Neurological History: Reports: None Other Neuro History: 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, none since Psychiatric History: Reports: Depression Endocrine/Metabolic History: Reports: Diabetes, Type II Hematologic History: Reports: None Immunologic History: Reports: None Oncologic (Cancer) History: Reports: None Dermatologic History: Reports: None - Infectious Disease History Infectious Disease History: Reports: Chicken Pox - Past Surgical History Head Surgeries/Procedures: Reports: None HEENT Surgical History: Reports: None Cardiovascular Surgical History: Reports: Coronary Artery Stent Other Cardiovascular Surgeries/Procedures: cardiac cath with stent placement Respiratory Surgical History: Reports: None GI Surgical History: Reports: Cholecystectomy, Colonoscopy Other GI Surgeries/Procedures: janis-en-y gastric bypass Female Surgical History: Reports: Oophorectomy Other Female Surgeries/Procedures: hx laparoscopy with oophorectomy Endocrine Surgical History: Reports: None Neurological Surgical History: Reports: None Musculoskeletal Surgical History: Reports: None Oncologic Surgical History: Reports: None Dermatological Surgical History: Reports: None Social & Family History - Family History Family Medical History: No Pertinent Family History - Caffeine Use Caffeine Use: Reports: Coffee, Tea Caffeine Use Comment: 4 cups daily ED ROS GENERAL - Review of Systems Review Of Systems: Comprehensive ROS is negative, except as noted in HPI. ED EXAM, GENERAL - Physical Exam Exam: See Below (See dictation) Course - Vital Signs Last Recorded V/S: Last Vital Signs Temp 97.6 F 11/24/20 12:40 Pulse 82 11/24/20 13:46 Resp 16 11/24/20 13:46 BP 145/84 H 11/24/20 13:46 Pulse Ox 97 11/24/20 13:46 - Orders/Labs/Meds Orders: Active Orders 24 hr Category Date Time Status EKG Documentation Completion [RC] STAT Care 11/24/20 12:52 Active Sodium Chloride 0.9% [Normal Saline] 500 ml Med 11/24/20 13:15 Active IV .BOLUS Sodium Chloride 0.9% [Saline Flush] Med 11/24/20 12:52 Active 10 ml FLUSH ASDIRECTED PRN Sodium Chloride 0.9% [Saline Flush] Med 11/24/20 12:52 Active 2.5 ml FLUSH ASDIRECTED PRN Saline Lock Insert [OM.PC] Stat Oth 11/24/20 12:52 Ordered Medication Orders Sodium Chloride (Normal Saline) 500 mls @ 999 mls/hr IV .BOLUS BLADE Last Admin: 11/24/20 13:24 Dose: 999 mls/hr Documented by: INGRID Sodium Chloride (Sodium Chloride 0.9% 10 Ml Syringe) 10 ml FLUSH ASDIRECTED PRN PRN Reason: Keep Vein Open Last Admin: 11/24/20 13:07 Dose: 10 ml Documented by: INGRID Sodium Chloride (Sodium Chloride 0.9% 2.5 Ml Syringe) 2.5 ml FLUSH ASDIRECTED P RN PRN Reason: Keep Vein Open Last Admin: 11/24/20 13:07 Dose: 2.5 ml Documented by: INGRID Labs: Laboratory Tests 04/22/21 04/22/21 04/22/21 Range/Units 13:30 13:30 13:30 WBC 9.15 (4.0-11.0) K/uL RBC 3.84 L (4.30-5.90) M/uL Hgb 11.1 L (12.0-16.0) g/dL Hct 33.7 L (36.0-46.0) % MCV 87.8 (80.0-98.0) fL MCH 28.9 (27.0-32.0) pg MCHC 32.9 (31.0-37.0) g/dL RDW Std Deviation 44.1 (28.0-62.0) fl RDW Coeff of Danny 14 (11.0-15.0) % Plt Count 291 (150-400) K/uL MPV 11.70 (7.40-12.00) fL Neut % (Auto) 69.8 (48.0-80.0) % Lymph % (Auto) 22.3 (16.0-40.0) % Evans % (Auto) 5.9 (0.0-15.0) % Eos % (Auto) 1.9 (0.0-7.0) % Baso % (Auto) 0.1 (0.0-1.5) % Neut # (Auto) 6.4 H (1.4-5.7) K/uL Lymph # (Auto) 2.0 (0.6-2.4) K/uL Evans # (Auto) 0.5 (0.0-0.8) K/uL Eos # (Auto) 0.2 (0.0-0.7) K/uL Baso # (Auto) 0.0 (0.0-0.1) K/uL Nucleated RBC % 0.0 /100WBC Nucleated RBCs # 0 K/uL Sodium 144 (136-145) mmol/L Potassium 3.8 (3.5-5.1) mmol/L Chloride 108 H (98-107) mmol/L Carbon Dioxide 26.0 (21.0-32.0) mmol/L BUN 12 (7.0-18.0) mg/dL Creatinine 0.5 L (0.6-1.0) mg/dL Est Cr Clr Drug Dosing 120.41 mL/min Estimated GFR (MDRD) > 60.0 ml/min Glucose 122 H (74-106) mg/dL Calcium 8.4 L (8.5-10.1) mg/dL Total Bilirubin 0.5 (0.2-1.0) mg/dL AST 41 H (15-37) IU/L ALT 53 (14-63) IU/L Alkaline Phosphatase 136 H (46-116) U/L Troponin I < 0.050 (0.000-0.056) ng/mL Total Protein 6.9 (6.4-8.2) g/dL Albumin 3.1 L (3.4-5.0) g/dL Globulin 3.8 (2.6-4.0) g/dL Albumin/Globulin Ratio 0.8 L (0.9-1.6) Urine Color Urine Appearance Urine pH (5.0-8.0) Ur Specific Dudley (1.001-1.035) Urine Protein (NEGATIVE) mg/dL Urine Glucose (UA) (NEGATIVE) mg/dL Urine Ketones (NEGATIVE) mg/dL Urine Occult Blood (NEGATIVE) Urine Nitrite (NEGATIVE) Urine Bilirubin (NEGATIVE) Urine Urobilinogen (<2.0) EU/dL Ur Leukocyte Esterase (NEGATIVE) SARS-CoV-2 RNA (ROYA) (NEGATIVE) 11/24/20 11/24/20 Range/Units 13:38 13:40 WBC (4.0-11.0) K/uL RBC (4.30-5.90) M/uL Hgb (12.0-16.0) g/dL Hct (36.0-46.0) % MCV (80.0-98.0) fL MCH (27.0-32.0) pg MCHC (31.0-37.0) g/dL RDW Std Deviation (28.0-62.0) fl RDW Coeff of Danny (11.0-15.0) % Plt Count (150-400) K/uL MPV (7.40-12.00) fL Neut % (Auto) (48.0-80.0) % Lymph % (Auto) (16.0-40.0) % Evans % (Auto) (0.0-15.0) % Eos % (Auto) (0.0-7.0) % Baso % (Auto) (0.0-1.5) % Neut # (Auto) (1.4-5.7) K/uL Lymph # (Auto) (0.6-2.4) K/uL Evans # (Auto) (0.0-0.8) K/uL Eos # (Auto) (0.0-0.7) K/uL Baso # (Auto) (0.0-0.1) K/uL Nucleated RBC % /100WBC Nucleated RBCs # K/uL Sodium (136-145) mmol/L Potassium (3.5-5.1) mmol/L Chloride (98-107) mmol/L Carbon Dioxide (21.0-32.0) mmol/L BUN (7.0-18.0) mg/dL Creatinine (0.6-1.0) mg/dL Est Cr Clr Drug Dosing mL/min Estimated GFR (MDRD) ml/min Glucose (74-106) mg/dL Calcium (8.5-10.1) mg/dL Total Bilirubin (0.2-1.0) mg/dL AST (15-37) IU/L ALT (14-63) IU/L Alkaline Phosphatase (46-116) U/L Troponin I (0.000-0.056) ng/mL Total Protein (6.4-8.2) g/dL Albumin (3.4-5.0) g/dL Globulin (2.6-4.0) g/dL Albumin/Globulin Ratio (0.9-1.6) Urine Color YELLOW Urine Appearance CLEAR Urine pH 5.5 (5.0-8.0) Ur Specific Dudley >= 1.030 (1.001-1.035) Urine Protein NEGATIVE (NEGATIVE) mg/dL Urine Glucose (UA) NEGATIVE (NEGATIVE) mg/dL Urine Ketones 15 H (NEGATIVE) mg/dL Urine Occult Blood NEGATIVE (NEGATIVE) Urine Nitrite NEGATIVE (NEGATIVE) Urine Bilirubin NEGATIVE (NEGATIVE) Urine Urobilinogen 0.2 (<2.0) EU/dL Ur Leukocyte Esterase NEGATIVE (NEGATIVE) SARS-CoV-2 RNA (ROYA) NEGATIVE (NEGATIVE) Meds: Medications Generic Name Dose Route Start Last Admin Trade Name Freq PRN Reason Stop Dose Admin Sodium Chloride 500 mls @ 999 mls/hr 11/24/20 13:15 11/24/20 13:24 Normal Saline IV 999 mls/hr .BOLUS BLADE Administration Sodium Chloride 10 ml 11/24/20 12:52 11/24/20 13:07 Sodium Chloride 0.9% 10 Ml Syringe FLUSH 10 ml ASDIRECTED PRN Administration Keep Vein Open Sodium Chloride 2.5 ml 11/24/20 12:52 11/24/20 13:07 Sodium Chloride 0.9% 2.5 Ml Syringe FLUSH 2.5 ml ASDIRECTED PRN Administration Keep Vein Open Discontinued Medications Generic Name Dose Route Start Last Admin Trade Name Mansi PRN Reason Stop Dose Admin Acetaminophen 1,000 mg 11/24/20 14:39 Acetaminophen 500 Mg Tab PO 11/24/20 14:40 ONETIME ONE Departure - Departure Time of Disposition: 14:44 Disposition: Home, Self-Care 01 Condition: Good Clinical Impression: Dizziness - Discharge Information *PRESCRIPTION DRUG MONITORING PROGRAM REVIEWED*: Not Applicable *COPY OF PRESCRIPTION DRUG MONITORING REPORT IN PATIENT PRAMOD: Not Applicable Instructions: Dizziness, [id number] Referrals: PCP,None [Primary Care Provider] - Forms: ED Department Discharge Additional Instructions: The following information is given to patients seen in the emergency department who are being discharged to home. This information is to outline your options for follow-up care. We provide all patients seen in our emergency department with a follow-up referral. The need for follow-up, as well as the timing and circumstances, are variable depending upon the specifics of your emergency department visit. If you don't have a primary care physician on staff, we will provide you with a referral. We always advise you to contact your personal physician following an emergency department visit to inform them of the circumstance of the visit and for follow-up with them and/or the need for any referrals to a consulting specialist. The emergency department will also refer you to a specialist when appropriate. This referral assures that you have the opportunity for follow-up care with a specialist. All of these measure are taken in an effort to provide you with optimal care, which includes your follow-up. Under all circumstances we always encourage you to contact your private physician who remains a resource for coordinating your care. When calling for follow-up care, please make the office aware that this follow-up is from your r ecent emergency room visit. If for any reason you are refused follow-up, please contact the Emergency Department at and asked to speak to the emergency department charge nurse. [facility] [address] [place] [address] [facility] [address] [place] [address] Plan: 1. You were evaluated today on an emergent basis. Your complaints of dizziness were evaluated with blood work, at head CT, EKG, and chest x-ray. Your blood work suggests the need for more protein in you diet. You started on a diet a month ago. You need to consult with a adult literacy teacher regarding your diet for weight loss. Get rest and plenty of fluids. Your EKG, head CT and chest x-ray were negative. I wrote a note to be off of work until Saturday. Please return if there are any problems. 2. You can alternate Tylenol DO NOT EXCEED 4,000MG PER DAY and ibuprofen as needed for pain and fever management. 3. We encourage you to follow up with your primary care provider and/or pramod mmended specialist in the next few days for re-evaluation and further care/management. 4. If your symptoms should worsen, new symptoms develop or any of the signs and symptoms we discussed should arise please return to the emergency room or call 911 (if needed). Sepsis Event Note (ED) - Focused Exam Vital Signs: Vital Signs Temp Pulse Resp BP Pulse Ox 11/24/20 13:46 82 16 145/84 H 97 11/24/20 12:40 97.6 F 80 17 134/71 98 - My Orders Last 24 Hours: My Active Orders 11/24/20 12:52 EKG Documentation Completion [RC] STAT Sodium Chloride 0.9% [Saline Flush] 10 ml FLUSH ASDIRECTED PRN Sodium Chloride 0.9% [Saline Flush] 2.5 ml FLUSH ASDIRECTED PRN Saline Lock Insert [OM.PC] Stat 11/24/20 13:15 Sodium Chloride 0.9% [Normal Saline] 500 ml IV .BOLUS - Assessment/Plan Last 24 Hours: My Active Orders 11/24/20 12:52 EKG Documentation Completion [RC] STAT Sodium Chloride 0.9% [Saline Flush] 10 ml FLUSH ASDIRECTED PRN Sodium Chloride 0.9% [Saline Flush] 2.5 ml FLUSH ASDIRECTED PRN Saline Lock Insert [OM.PC] Stat 11/24/20 13:15 Sodium Chloride 0.9% [Normal Saline] 500 ml IV .BOLUS
[2020-11-24] MEDS ORDERED: Sodium Chloride 0.9% 10 ML Syringe FLUSH PRN (12:52)
[2020-11-24] MEDS ORDERED: Sodium Chloride 0.9% 2.5 ML Syringe FLUSH PRN (12:52)
[2020-11-24] MEDS ORDERED: Sodium Chloride 0.9% 500 ML IV SCH (13:15)
--- NOTE | 2020-11-24 13:40 | CR ---
INDICATION: Dizziness. COMPARISON: : 25 June 2019 TECHNIQUE: Two view chest. FINDINGS: The lungs are clear. The heart, mediastinum and pulmonary vessels are of normal size. There is no evidence of pleural disease. IMPRESSION: Negative chest. Dictated by Carrington Carvajal MD @ 11/24/2020 1:38:[address] Carrington Carvajal @ Nov 24 2020 1:38PM
--- NOTE | 2020-11-24 13:46 | CT ---
INDICATION: Lightheadedness and dizziness x3 days TECHNIQUE: CT head without contrast. COMPARISON: 05/25/2017 FINDINGS: CSF spaces: Within normal limits for age. Brain parenchyma: The gayle-white differentiation is normal. No sign of mass, hemorrhage, or midline shift. Calcified plaque involving the vertebral arteries. Skull base and calvarium: The visualized paranasal sinuses and mastoid air cells demonstrate no acute or significant findings. The visualized orbits are grossly unremarkable. No skull fractures. IMPRESSION: Unremarkable noncontrast head CT. Please note that all CT scans at this facility use dose modulation, iterative reconstruction, and/or weight-based dosing when appropriate to reduce radiation dose to as low as reasonably achievable. Dictated by Frank Curtis MD @ 11/24/2020 1:45:[address] Frank Curtis @ Nov 24 2020 1:45PM
[2020-11-24 14:00] LABS: BLOOD UREA NITROGEN,BUN 12 mg/dL (7.0-18.0); CHLORIDE,CL 108 mmol/L (98-107); GLUCOSE RANDOM 122 mg/dL (74-106); POTASSIUM,K 3.8 mmol/L (3.5-5.1); SODIUM,NA 144 mmol/L (136-145)
[2020-11-24] MEDS ORDERED: Acetaminophen 500 MG Tab PO ONE (14:39)
[2020-11-24 14:56] VITALS: BP 167/80; PULSE 77
--- NOTE | 2020-11-25 17:18 | PCM.EKG ---
#1 Interpretation EKG Date: 11/24/20 Time: 12:58 Rhythm: NSR Rate (Beats/Min): 80 Eugene: Normal P-Wave: Present QRS: Normal ST-T: Normal QT: Normal Comparison: No Change (06/25/19) EKG Interpretation Comments: SinuS Rhythm
== END 2020-11-24 14:52 | disposition home or self-care (01) ==
LOC: MW.ED 12:17
DX: R42 Dizziness and giddiness (principal); E78.00 Pure hypercholesterolemia, unspecified; I10 Essential (primary) hypertension; E11.9 Type 2 diabetes mellitus without complications; Z79.82 Long term (current) use of aspirin; Z79.4 Long term (current) use of insulin; Z79.899 Other long term (current) drug therapy; Z20.822 Contact with and (suspected) exposure to COVID-19
CPT/HCPCS: 36415; 70450; 71046; 80053; 81003; 84484; 85025; 87635; 93005; 99284; A9270; J7040; U0002

== ENCOUNTER 2021-05-13 14:29 | Emergency (ER) | payer BC, OTHER ==
[2021-05-13] MEDS ORDERED: Ketorolac 15 MG/ML SDV IVPUSH ONE (14:45)
[2021-05-13] MEDS ORDERED: Sodium Chloride 0.9% 2.5 ML Syringe FLUSH PRN (14:45)
[2021-05-13] MEDS ORDERED: Sodium Chloride 0.9% 10 ML Syringe FLUSH PRN (14:45)
--- NOTE | 2021-05-13 14:49 | EDM.PDOC ---
ED HPI GENERAL MEDICAL PROBLEM - General Chief Complaint: Chest Pain Stated Complaint: CHEST PAIN Time Seen by Provider: 05/13/21 14:31 - History of Present Illness INITIAL COMMENTS - FREE TEXT/NARRATIVE: History of present illness: [] Patient is a vague chest pain for 2 to 3 weeks. For the last 24 hours it has been radiating to the left shoulder. It is a dull ache that is moderately severe. Nothing makes it better or worse. It does not come on with exertion. There is no diaphoresis nausea or shortness of breath. The patient is diabetic. Her father had premature coronary vessel disease but he was a smoker. Patient does not smoke. Review of systems: As per history of present illness and below otherwise all systems reviewed and negative. Past medical history: As per history of present illness and as reviewed below otherwise noncontributory. Surgical history: As per history of present illness and as reviewed below otherwise noncontributory. Social history: No reported history of drug or alcohol abuse. Family history: As per history of present illness and as reviewed below otherwise noncontributory. Physical exam: Constitutional - well developed, well-nourished and in no acute distress HEENT - normocephalic, no evidence of trauma - external nose and mouth normal - no mass in neck and no JVD - mucosae moist EYES - full EOM, PERRL, no icterus - no evidence of inflammation, injection, or drainage Respiratory - no respiratory distress, equal bilateral expansion, lungs clear to auscultation and no abnormal lung sounds Cardiovascular - Regular Rhythm with S1 and S2 appreciated and no murmur, gallop or rub. GI - abdomen soft without distension or organomegaly - normal bowel sounds - no guard or rebound Musculoskeletal there is some reproduction of her pain when I push on the left chest wall. no gross deformity of long bones or joints - no tenderness, swelling or edema Neurologic - Alert and oriented times four - CN II-XII grossly intact - motor sensory and coordination symmetrically normal Psychiatric - appropriate mood and affect with normal thought content Hematologic - No petechiae or purpura - mucosa appropriate color and sclera not pale - normal nail bed color and refill Integument - no rash or evidence of trauma - normal turgor Diagnostics: [] Therapeutics: [] Impression: [] Plan: [] Definitive disposition and diagnosis as appropriate pending reevaluation and review of above. chest Pain Score (Numeric/FACES): 8 - Related Data Allergies Allergy/AdvReac Type Severity Reaction Status Date / Time No Known Allergies Allergy Verified 05/13/21 14:33 Home Meds: Home Meds metFORMIN [Glucophage XR] 1,000 mg PO BID 03/31/17 [History] Furosemide [Lasix] 20 mg PO DAILY 07/22/17 [History] Insulin Detemir [Levemir Flextouch] 46 unit INJECT DAILY 05/28/19 [History] Isosorbide Mononitrate [Ismo] 30 mg PO DAILY 05/28/19 [History] Losartan [Cozaar] 50 mg PO DAILY 05/28/19 [History] Metoprolol Succinate [Kapspargo Sprinkle] 25 mg PO DAILY 05/28/19 [History] Pantoprazole Sodium [Protonix] 40 mg PO DAILY 05/28/19 [History] metOLazone [Metolazone] 2.5 mg PO DAILY 05/28/19 [History] traMADol HCl [Tramadol HCl] 50 mg PO Q6HR PRN 05/28/19 [History] Aspirin [Adult Low Dose Aspirin EC] 81 mg PO DAILY 06/26/19 [History] Potassium Chloride [Klor-Con] 20 meq PO DAILY 06/26/19 [History] atorvaSTATin [Lipitor] 40 mg PO BEDTIME 06/26/19 [History] Doxycycline [Vibramycin] 100 mg PO BID #20 tab 10/21/20 [Rx] Past Medical History - Past Health History Medical/Surgical History: Denies Medical/Surgical History HEENT History: Reports: None Cardiovascular History: Reports: High Cholesterol, Hypertension, Stents Respiratory History: Reports: None, Other (See Below) Gastrointestinal History: Reports: None Genitourinary History: Reports: None [employer] History: Reports: Musculoskeletal History: Reports: None Neurological History: Reports: None Other Neuro History: 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, none since Psychiatric History: Reports: Depression Endocrine/Metabolic History: Reports: Diabetes, Type II Hematologic History: Reports: None Immunologic History: Reports: None Oncologic (Cancer) History: Reports: None Dermatologic History: Reports: None - Infectious Disease History Infectious Disease History: Reports: Chicken Pox - Past Surgical History Head Surgeries/Procedures: Reports: None HEENT Surgical History: Reports: None Cardiovascular Surgical History: Reports: Coronary Artery Stent Other Cardiovascular Surgeries/Procedures: cardiac cath with stent placement Respiratory Surgical History: Reports: None GI Surgical History: Reports: Cholecystectomy, Colonoscopy Other GI Surgeries/Procedures: janis-en-y gastric bypass Female Surgical History: Reports: Oophorectomy Other Female Surgeries/Procedures: hx laparoscopy with oophorectomy Endocrine Surgical History: Reports: None Neurological Surgical History: Reports: None Musculoskeletal Surgical History: Reports: None Oncologic Surgical History: Reports: None Dermatological Surgical History: Reports: None Social & Family History - Family History Family Medical History: No Pertinent Family History - Caffeine Use Caffeine Use: Reports: Coffee, Tea Caffeine Use Comment: 4 cups daily ED ROS GENERAL - Review of Systems Review Of Systems: Comprehensive ROS is negative, except as noted in HPI. ED EXAM, GENERAL - Physical Exam Exam: See Below Free Text/Narrative:: My physical exam is in the HPI #1 Interpretation EKG Interpretation Comments: EKG done 05/13/2021 at 2:33 PM shows a sinus rhythm with a heart rate 77 VT 169 QT 441 axis [address] and T impression normal EKG Course - Vital Signs Text/Narrative:: 1538 hrs. patient has been taking a lot of Tylenol. Her abdomen is not tender at all. Her chest wall pain is reproduced by pushing on the left sternal border. Patient drinks minimal alcohol. She does take pantoprazole. Plan to double her pantoprazole. Switch pain medicine to NSAIDs. Follow-up at her clinic in [place] or our local clinic to recheck liver enzymes. Last Recorded V/S: Last Vital Signs Temp 36.4 C 05/13/21 14:33 Pulse 76 05/13/21 15:20 Resp 16 05/13/21 15:20 BP 140/75 05/13/21 15:20 Pulse Ox 98 05/13/21 15:20 - Orders/Labs/Meds Orders: Active Orders 24 hr Category Date Time Status Sodium Chloride 0.9% [Saline Flush] Med 05/13/21 14:45 Active 10 ml FLUSH ASDIRECTED PRN Sodium Chloride 0.9% [Saline Flush] Med 05/13/21 14:45 Active 2.5 ml FLUSH ASDIRECTED PRN Saline Lock Insert [OM.PC] Stat Oth 05/13/21 14:45 Ordered Medication Orders Sodium Chloride (Sodium Chloride 0.9% 10 Ml Syringe) 10 ml FLUSH ASDIRECTED PRN PRN Reason: Keep Vein Open Last Admin: 05/13/21 15:23 Dose: 10 ml Documented by: EL Sodium Chloride (Sodium Chloride 0.9% 2.5 Ml Syringe) 2.5 ml FLUSH ASDIRECTED PRN PRN Reason: Keep Vein Open Last Admin: 05/13/21 15:23 Dose: 2.5 ml Documented by: LE Labs: Laboratory Tests 05/13/21 05/13/21 Range/Units 14:40 14:40 WBC 7.94 (4.0-11.0) K/uL RBC 3.70 L (4.30-5.90) M/uL Hgb 10.5 L (12.0-16.0) g/dL Hct 32.3 L (36.0-46.0) % MCV 87.3 (80.0-98.0) fL MCH 28.4 (27.0-32.0) pg MCHC 32.5 (31.0-37.0) g/dL RDW Std Deviation 44.6 (28.0-62.0) fl RDW Coeff of Danny 14 (11.0-15.0) % Plt Count 276 (150-400) K/uL MPV 12.50 H (7.40-12.00) fL Neut % (Auto) 56.6 (48.0-80.0) % Lymph % (Auto) 33.1 (16.0-40.0) % [place] % (Auto) 7.4 (0.0-15.0) % Eos % (Auto) 2.4 (0.0-7.0) % Baso % (Auto) 0.5 (0.0-1.5) % Neut # (Auto) 4.5 (1.4-5.7) K/uL Lymph # (Auto) 2.6 H (0.6-2.4) K/uL [place] # (Auto) 0.6 (0.0-0.8) K/uL Eos # (Auto) 0.2 (0.0-0.7) K/uL Baso # (Auto) 0.0 (0.0-0.1) K/uL Nucleated RBC % 0.0 /100WBC Nucleated RBCs # 0 K/uL Sodium 140 (136-145) mmol/L Potassium 4.6 (3.5-5.1) mmol/L Chloride 104 (98-107) mmol/L Carbon Dioxide 28.3 (21.0-32.0) mmol/L BUN 16 (7.0-18.0) mg/dL Creatinine 0.7 (0.6-1.0) mg/dL Est Cr Clr Drug Dosing 85.01 mL/min Estimated GFR (MDRD) > 60.0 ml/min Glucose 216 H (74-106) mg/dL Calcium 8.2 L (8.5-10.1) mg/dL Total Bilirubin 0.5 (0.2-1.0) mg/dL AST 112 H (15-37) IU/L ALT 108 H (14-63) IU/L Alkaline Phosphatase 174 H (46-116) U/L Troponin I < 0.050 (0.000-0.056) ng/mL Total Protein 6.4 (6.4-8.2) g/dL Albumin 3.0 L (3.4-5.0) g/dL Globulin 3.4 (2.6-4.0) g/dL Albumin/Globulin Ratio 0.9 (0.9-1.6) Lipase 111 (73-393) U/L Meds: Medications Generic Name Dose Route Start Last Admin Trade Name Mansi PRN Reason Stop Dose Admin Sodium Chloride 10 ml 05/13/21 14:45 05/13/21 15:23 Sodium Chloride 0.9% 10 Ml Syringe FLUSH 10 ml ASDIRECTED PRN Administration Keep Vein Open Sodium Chloride 2.5 ml 05/13/21 14:45 05/13/21 15:23 Sodium Chloride 0.9% 2.5 Ml Syringe FLUSH 2.5 ml ASDIRECTED PRN Administration Keep Vein Open Discontinued Medications Generic Name Dose Route Start Last Admin Trade Name Freq PRN Reason Stop Dose Admin Ketorolac Tromethamine 15 mg 05/13/21 14:45 05/13/21 14:55 Ketorolac 15 Mg/Ml Sdv IVPUSH 05/13/21 14:46 15 mg ONETIME ONE Administration Departure - Departure Time of Disposition: 15:39 Disposition: Home, Self-Care 01 Condition: Good Clinical Impression: Chest wall pain, Elevated transaminase level - Discharge Information Instructions: Chest Wall Pain, Glyi-ca-Arip Referrals: [facility] [Primary Care Provider] - Forms: ED Department Discharge Additional Instructions: Regarding elevation of liver enzymes you should return if he have severe abdominal pain with fever. Avoid Tylenol and alcohol. Use NSAIDs for your pain but along with that you need to double your pantoprazole to twice a day. Follow-up with your local clinic in [place] or eye clinic here to repeat liver enzymes and decide if further studies are needed. [facility] - Primary Care [address] [place] [address] [id number] [facility] [address] [place] [id number] The following information is given to patients seen in the emergency department who are being discharged to home. This information is to outline your options for follow-up care. We provide all patients seen in our emergency department with a follow-up referral. The need for follow-up, as well as the timing and circumstances, are variable depending upon the specifics of your emergency department visit. If you don't have a primary care physician on staff, we will provide you with a referral. We always advise you to contact your personal physician following an emergency department visit to inform them of the circumstance of the visit and for follow-up with them and/or the need for any referrals to a consulting specialist. The emergency department will also refer you to a specialist when appropriate. This referral assures that you have the opportunity for follow-up care with a specialist. All of these measure are taken in an effort to provide you with optimal care, which includes your follow-up. Under all circumstances we always encourage you to contact your private physician who remains a resource for coordinating your care. When calling for follow-up care, please make the office aware that this follow-up is from your recent emergency room visit. If for any reason you are refused follow-up, please contact the [facility] Emergency Department at and asked to speak to the emergency department charge nurse. Sepsis Event Note (ED) - Evaluation Sepsis Screening Result: No Definite Risk - Focused Exam Vital Signs: Vital Signs Temp Pulse Resp BP Pulse Ox 05/13/21 15:20 76 16 140/75 98 05/13/21 14:33 36.4 C 79 18 135/77 95 - My Orders Last 24 Hours: My Active Orders 05/13/21 14:45 Sodium Chloride 0.9% [Saline Flush] 10 ml FLUSH ASDIRECTED PRN Sodium Chloride 0.9% [Saline Flush] 2.5 ml FLUSH ASDIRECTED PRN Saline Lock Insert [OM.PC] Stat - Assessment/Plan Last 24 Hours: My Active Orders 05/13/21 14:45 Sodium Chloride 0.9% [Saline Flush] 10 ml FLUSH ASDIRECTED PRN Sodium Chloride 0.9% [Saline Flush] 2.5 ml FLUSH ASDIRECTED PRN Saline Lock Insert [OM.PC] Stat
[2021-05-13 15:14] LABS: BLOOD UREA NITROGEN,BUN 16 mg/dL (7.0-18.0); CARBON DIOXIDE,CO2 28.3 mmol/L (21.0-32.0); CHLORIDE,CL 104 mmol/L (98-107); GLUCOSE RANDOM 216 mg/dL (74-106); LIPASE 111 U/L (73-393); POTASSIUM,K 4.6 mmol/L (3.5-5.1); SODIUM,NA 140 mmol/L (136-145)
[2021-05-13 15:23] VITALS: PULSE 76
--- NOTE | 2021-05-13 15:27 | CR ---
INDICATION: Chest pain TECHNIQUE: Chest 1 view. COMPARISON: Chest x-ray 11/24/2020 FINDINGS: The heart is normal in size. The pulmonary vasculature is within normal limits. The lungs are clear. The bones are unremarkable. IMPRESSION: No acute process. Dictated by Carlee Lerma MD @ 05/13/2021 3:26:12 PM (Electronically Signed)
[2021-05-13 15:56] VITALS: BP 121/75
== END 2021-05-13 16:01 | disposition home or self-care (01) ==
LOC: MW.ED 14:29
DX: R07.89 Other chest pain (principal); R74.01 Elevation of levels of liver transaminase levels; E78.00 Pure hypercholesterolemia, unspecified; I10 Essential (primary) hypertension; E11.9 Type 2 diabetes mellitus without complications; Z95.5 Presence of coronary angioplasty implant and graft; Z79.4 Long term (current) use of insulin; Z79.84 Long term (current) use of oral hypoglycemic drugs; Z79.82 Long term (current) use of aspirin; Z79.899 Other long term (current) drug therapy
CPT/HCPCS: 36415; 71045; 80053; 83690; 84484; 85025; 93005; 96374; 99285; J1885

== ENCOUNTER 2021-12-05 09:17 | Emergency (ER) | payer BC, OTHER ==
[2021-12-05] MEDS ORDERED: Ondansetron 4 MG Tab.DIS PO ONE (10:16)
[2021-12-05] MEDS ORDERED: Ketorolac 60 MG/2 ML SDV IM ONE (10:16)
[2021-12-05 13:14] VITALS: BP 135/77; PULSE 78
== END 2021-12-05 13:15 | disposition home or self-care (01) ==
LOC: MW.ED 09:17
DX: S29.9XXA Unspecified injury of thorax, initial encounter (principal); E78.00 Pure hypercholesterolemia, unspecified; I10 Essential (primary) hypertension; E11.9 Type 2 diabetes mellitus without complications; Z90.49 Acquired absence of other specified parts of digestive tract; Z79.899 Other long term (current) drug therapy; Z79.84 Long term (current) use of oral hypoglycemic drugs; Z79.4 Long term (current) use of insulin; Z79.82 Long term (current) use of aspirin; W18.2XXA Fall in (into) shower or empty bathtub, initial encounter
CPT/HCPCS: 71250; 96372; 99283; A9270; J1885

== ENCOUNTER 2022-02-25 03:52 | Emergency (ER) | payer BC, OTHER ==
[2022-02-25] MEDS ORDERED: Sodium Chloride 0.9% 1,000 ML IV ONE (04:03)
[2022-02-25] MEDS ORDERED: diphenhydrAMINE 50 MG/ML SDV IVPUSH ONE (04:03)
[2022-02-25] MEDS ORDERED: Metoclopramide 10 MG/2 ML SDV IVPUSH ONE (04:03)
[2022-02-25] MEDS ORDERED: Acetaminophen/Butalbital/Caffeine 325-50-40 MG Tab PO ONE (04:04)
[2022-02-25 04:35] LABS: CARBON DIOXIDE,CO2 31.1 mmol/L (21.0-32.0); POTASSIUM,K 2.7 mmol/L (3.5-5.1)
[2022-02-25] MEDS ORDERED: Potassium Chloride 20 MEQ Tab.ER PO ONE (05:09)
[2022-02-25] MEDS ORDERED: Magnesium Oxide 400 MG Tab PO ONE (05:09)
[2022-02-25 07:41] VITALS: BP 134/75; PULSE 73
== END 2022-02-25 07:39 | disposition home or self-care (01) ==
LOC: MW.ED 03:52
DX: R51.9 Headache, unspecified (principal); E11.9 Type 2 diabetes mellitus without complications; E78.00 Pure hypercholesterolemia, unspecified; I10 Essential (primary) hypertension; Z79.4 Long term (current) use of insulin; Z79.82 Long term (current) use of aspirin; Z79.899 Other long term (current) drug therapy; Z95.5 Presence of coronary angioplasty implant and graft; Z20.822 Contact with and (suspected) exposure to COVID-19
CPT/HCPCS: 36415; 70450; 80053; 83735; 85025; 87635; 96361; 96374; 96375; 99284; A9270; J1200; J2765; J7030; U0002